=== PATIENT | male | born 1945 | race Caucasian/White ===

== ENCOUNTER 2023-06-11 12:09 | Inpatient (IN) ==
[2023-06-11] MEDS ORDERED: SODIUM CHLORIDE 0.9% 500 ML IV ONE (13:31)
--- NOTE | 2023-06-11 13:36 | Emergency Department Note ---
Impression & Plan Weakness, Falling, COVID-19 ED Provider Note NAME: CHRIS HAYDEN AGE: 78 SEX: M : 1945 ARRIVES VIA: Walk-In INFORMANT: [Patient][] ED PROVIDER(S): [Rudy Diaz MD] CHIEF COMPLAINT: Weakness HISTORY OF PRESENT ILLNESS: The patient is an 78-year-old male who has had 4 to 5 days of cough and congestion. He has had some urgency and frequency of urination. Maybe a low- grade fever but nothing persistent. No chest pain. No shortness of breath. No nausea or vomiting. In the last 36 hours, the patient has become fairly weak to the point where he has had falling. He has fallen about 6 times although, he did not suffer any real injury. No head strikes. He is not on blood thinning agents. Because of the weakness, he presents for evaluation. The patient did do a home COVID test, this was negative. He has had no home sick contacts. PMHx/PSHx/Social Hx: See Below PHYSICAL EXAM: GENERAL: Patient is in no acute distress. HEENT: No acute trauma, normocephalic atraumatic, mucous membranes moist, no nasal congestion. NECK: No stridor, no adenopathy, no meningismus, trachea is midline. LUNGS: Clear to auscultation bilaterally, no wheeze, no rhonchi, breath sounds equal. HEART: Without murmurs gallops or rubs, regular rate and rhythm. ABDOMEN: Soft, nontender, no peritonitis. EXTREMITIES: No cyanosis, full range of motion of all the joints without pain or difficulty. NEUROLOGIC: Oriented x 3, no acute motor or sensory deficits, no focal weakness. No speech slur or facial droop. SKIN: No jaundice, no diaphoresis. DIFFERENTIAL DIAGNOSIS: Dehydration, anemia, electrolyte imbalance, UTI, viral illness, pneumonia, among others. EMERGENCY DEPARTMENT PROCEDURES: MEDICAL DECISION MAKING: There is no leukocytosis. A very mild anemia was seen. There was a normal platelet count. No coagulopathy. No renal failure or significant electrolyte abnormality. No concerning liver enzyme elevation. The patient appeared to be in a euthyroid state. ECG shows a normal sinus rhythm, no ischemia. Cardiac enzyme testing x 1 is not consistent with acute cardiac injury. Urinalysis does not show infection, some contamination was seen. Respiratory bio fire was positive for COVID-19. Chest film did not show mediastinal widening, pneumonia or pneumothorax. On exam, the patient did not have any focal neurologic deficits. The patient presents with weakness. He has fallen multiple times in just the last day and a half. He was not felt safe at home. I suspect his weakness is from his COVID-19 infection. Given the circumstances, hospitalization was felt warranted. I spoke with the patient and case management, the on-call hospitalist was consulted. During the ER stay, the patient received IV saline, 500 cc. Prior/Outside records/notes reviewed: ECG per my interpretation: Indication was weakness. The ECG shows a normal sinus rhythm with some sinus arrhythmia. The rate is 61. There is no ST elevation, no PVCs. The QTc is 420. Continuous Cardiac Monitoring per my interpretation: An order was placed for continuous cardiac monitoring. The monitor shows a rate of 58 with sinus bradycardia. Imaging/x-ray results per my interpretation: Chest x-ray does not show mediastinal widening, pneumonia or pneumothorax. Chronic Medical/Social conditions affecting care: Advanced age. Care/Management discussed with: Case management, the on-call hospitalist Level of care consideration(s): After review of the information above and other included data: --I believe the patient requires escalation of care to admission DISPOSITION: Admission Past Med/Surg History Medical History Depression HLD (hyperlipidemia) Aortic aneurysm Idiopathic peripheral neuropathy T2DM (type 2 diabetes mellitus) Parkinson disease CAD (coronary artery disease) Surgical History Hx of CABG Hx of hernia repair Hx of cataract extraction Family History (Updated 06/11/23 @ 15:43 by Sussy Prasad PA-C) Father Parkinson disease Social History Smoking Status: Former smoker Tobacco Type: Cigarettes Hx Alcohol Use: No Hx Substance Use: No Preferred Language: Ukrainian marital status: Current Living Situation: Spouse Feels Safe at Home: Yes Allergies Allergies Allergy/AdvReac Type Severity Reaction Status Date / Time Iodinated Contrast Media Allergy Severe Anaphylaxis Verified 06/11/23 15:54 iodine Allergy Severe Anaphylaxis Verified 06/11/23 15:54 shellfish derived Allergy Severe Anaphylaxis Verified 06/11/23 15:54 Home Meds Home Medications Medication Instructions Recorded Confirmed aspirin 325 mg tablet,delayed 325 mg PO DAILY 06/11/23 06/11/23 release azelastine 137 mcg (0.1 %) nasal 2 spray intranasal BID 06/11/23 06/11/23 spray aerosol carbidopa 25 mg-levodopa 100 mg 1 tab PO BID 06/11/23 06/11/23 tablet carvedilol 3.125 mg tablet 3.125 mg PO BID 06/11/23 06/11/23 cholecalciferol (vitamin D3) 125 5,000 unit PO DAILY 06/11/23 06/11/23 mcg (5,000 unit) tablet (Vitamin D3) cyanocobalamin (vitamin B-12) 1,000 mcg PO DAILY 06/11/23 06/11/23 1,000 mcg tablet (Vitamin B-12) famotidine 40 mg tablet 40 mg PO DAILYBB 06/11/23 06/11/23 levocetirizine 5 mg tablet 5 mg PO DAILY 06/11/23 06/11/23 lisinopril 2.5 mg tablet 2.5 mg PO DAILY 06/11/23 06/11/23 meloxicam 15 mg tablet 15 mg PO DAILY 06/11/23 06/11/23 metformin 500 mg tablet,extended 1,000 mg PO BID 06/11/23 06/11/23 release 24 hr montelukast 10 mg tablet 10 mg PO DAILY 06/11/23 06/11/23 (Singulair) multivitamin 1 tab PO DAILY 06/11/23 06/11/23 nitroglycerin 0.4 mg sublingual 0.4 mg sublingual DIRECTED PRN 06/11/23 06/11/23 tablet (Nitrostat) Chest Pain rosuvastatin 20 mg tablet 20 mg PO HS 06/11/23 06/11/23 tramadol 50 mg tablet 50 mg PO Q6H PRN Pain 06/11/23 06/11/23 trazodone 50 mg tablet 50 mg PO HS 06/11/23 06/11/23 Results & Data (ED) Vital Signs Vital Signs - 24 hr 06/11/23 12:14 06/11/23 12:38 06/11/23 12:39 Temperature 36.3 C L Temperature Source Skin Pulse Rate 69 Pulse Rate [Apical] 64 Pulse Rhythm Regular Pulse Strength Normal Respiratory Rate 20 17 Respiratory Effort / Characteristics Non-Labored Spontaneous Non-Labored Spontaneous Respiratory Depth Normal Normal Respiratory Pattern Regular Blood Pressure 127/74 Blood Pressure [Right Arm] 143/70 H Blood Pressure Mean 91 Blood Pressure Mean [Right Arm] 94 Blood Pressure Position [Right Arm] Semi-fowlers Pulse Oximetry 96 94 94 Oxygen Delivery Method Room Air Room Air Room Air Sepsis Recent Fever Within 48 Hours No Sepsis New/Unexplained Change in Mental Status N/A Sepsis Action Taken by Nursing No Action Required 06/11/23 13:13 06/11/23 13:19 06/11/23 15:00 Temperature Temperature Source Pulse Rate 58 L Pulse Rate [Apical] 59 L Pulse Rhythm Pulse Strength Respiratory Rate 18 Respiratory Effort / Characteristics Non-Labored Respiratory Depth Normal Respiratory Pattern Blood Pressure Blood Pressure [Right Arm] 154/74 H Blood Pressure Mean Blood Pressure Mean [Right Arm] 100 Blood Pressure Position [Right Arm] Pulse Oximetry 94 95 Oxygen Delivery Method Room Air Room Air Sepsis Recent Fever Within 48 Hours Sepsis New/Unexplained Change in Mental Status Sepsis Action Taken by Nursing 06/11/23 15:20 06/11/23 15:30 06/11/23 15:30 Temperature 36.8 C Temperature Source Oral Pulse Rate 57 L Pulse Rate [Apical] Pulse Rhythm Pulse Strength Respiratory Rate 21 Respiratory Effort / Characteristics Short of Breath Respiratory Depth Respiratory Pattern Blood Pressure 164/76 H Blood Pressure [Right Arm] Blood Pressure Mean 97 Blood Pressure Mean [Right Arm] Blood Pressure Position [Right Arm] Pulse Oximetry 95 Oxygen Delivery Method Room Air Sepsis Recent Fever Within 48 Hours Sepsis New/Unexplained Change in Mental Status Sepsis Action Taken by Nursing 06/11/23 16:00 06/11/23 16:00 06/11/23 16:30 Temperature Temperature Source Pulse Rate 59 L 63 Pulse Rate [Apical] Pulse Rhythm Pulse Strength Respiratory Rate 22 17 Respiratory Effort / Characteristics Respiratory Depth Respiratory Pattern Blood Pressure 163/80 H Blood Pressure [Right Arm] Blood Pressure Mean 125 Blood Pressure Mean [Right Arm] Blood Pressure Position [Right Arm] Pulse Oximetry 96 Oxygen Delivery Method Room Air Sepsis Recent Fever Within 48 Hours Sepsis New/Unexplained Change in Mental Status Sepsis Action Taken by Nursing 06/11/23 16:32 06/11/23 16:32 06/11/23 17:00 Temperature Temperature Source Pulse Rate Pulse Rate [Apical] Pulse Rhythm Pulse Strength Respiratory Rate 22 Respiratory Effort / Characteristics Respiratory Depth Respiratory Pattern Blood Pressure 141/77 H Blood Pressure [Right Arm] Blood Pressure Mean 102 Blood Pressure Mean [Right Arm] Blood Pressure Position [Right Arm] Pulse Oximetry 92 Oxygen Delivery Method Room Air Sepsis Recent Fever Within 48 Hours Sepsis New/Unexplained Change in Mental Status Sepsis Action Taken by Nursing 06/11/23 17:01 06/11/23 17:01 06/11/23 17:23 Temperature Temperature Source Pulse Rate 60 62 Pulse Rate [Apical] Pulse Rhythm Pulse Strength Respiratory Rate 19 Respiratory Effort / Characteristics Respiratory Depth Respiratory Pattern Blood Pressure 161/63 H Blood Pressure [Right Arm] Blood Pressure Mean 85 Blood Pressure Mean [Right Arm] Blood Pressure Position [Right Arm] Pulse Oximetry Oxygen Delivery Method Sepsis Recent Fever Within 48 Hours Sepsis New/Unexplained Change in Mental Status Sepsis Action Taken by Nursing 06/11/23 17:28 06/11/23 17:30 06/11/23 17:31 Temperature Temperature Source Pulse Rate 60 Pulse Rate [Apical] Pulse Rhythm Pulse Strength Respiratory Rate 21 13 Respiratory Effort / Characteristics Respiratory Depth Respiratory Pattern Blood Pressure 152/96 H Blood Pressure [Right Arm] Blood Pressure Mean 131 Blood Pressure Mean [Right Arm] Blood Pressure Position [Right Arm] Pulse Oximetry Oxygen Delivery Method Sepsis Recent Fever Within 48 Hours Sepsis New/Unexplained Change in Mental Status Sepsis Action Taken by Nursing 06/11/23 18:00 06/11/23 18:00 06/11/23 18:30 Temperature Temperature Source Pulse Rate Pulse Rate [Apical] Pulse Rhythm Pulse Strength Respiratory Rate 21 Respiratory Effort / Characteristics Respiratory Depth Respiratory Pattern Blood Pressure 189/94 H 154/82 H Blood Pressure [Right Arm] Blood Pressure Mean 142 116 Blood Pressure Mean [Right Arm] Blood Pressure Position [Right Arm] Pulse Oximetry 95 Oxygen Delivery Method Sepsis Recent Fever Within 48 Hours Sepsis New/Unexplained Change in Mental Status Sepsis Action Taken by Nursing 06/11/23 18:30 Temperature Temperature Source Pulse Rate 61 Pulse Rate [Apical] Pulse Rhythm Pulse Strength Respiratory Rate 18 Respiratory Effort / Characteristics Respiratory Depth Respiratory Pattern Blood Pressure Blood Pressure [Right Arm] Blood Pressure Mean Blood Pressure Mean [Right Arm] Blood Pressure Position [Right Arm] Pulse Oximetry 94 Oxygen Delivery Method Room Air Sepsis Recent Fever Within 48 Hours Sepsis New/Unexplained Change in Mental Status Sepsis Action Taken by Usp Medications Current Medication List: was personally reviewed by sc Laboratory Data Attestation: I reviewed the patient's lab results. 06/11/23 13:34 06/11/23 13:34 Lab Results 06/11/23 06/11/23 Range/Units 13:34 15:20 WBC 6.98 (4.8-10.8) K/ul RBC 4.65 L (4.70-6.10) M/uL Hgb 13.8 L (14.0-18.0) g/dl Hct 41.8 L (42.0-52.0) % MCV 89.9 (80.0-100.0) fL MCH 29.7 (25.0-34.0) pg MCHC 33.0 (32.0-36.0) g/dL RDW Std Deviation 43.9 (36.4-46.3) fL RDW Coeff of Nafisa 13.4 (11.5-14.5) % Plt Count 138 (130-400) K/uL MPV 9.8 (9.4-12.4) fL Immature Gran % (Auto) 0.3 % Neut % (Auto) 61.2 % Lymph % (Auto) 20.1 % [place] % (Auto) 14.3 % Eos % (Auto) 3.7 % Baso % (Auto) 0.4 % Neut # (Auto) 4.27 (1.40-6.50) K/uL Lymph # (Auto) 1.40 (1.20-3.40) K/uL [place] # (Auto) 1.00 H (0.11-0.59) K/uL Eos # (Auto) 0.26 (0.00-0.50) K/uL Baso # (Auto) 0.03 (0.00-0.20) K/uL Immature Gran # (Auto) 0.02 (0.01-0.20) K/uL PT 11.3 (9.0-12.0) Seconds INR 1.0 (0.9-1.1) APTT 33 H (21-31) Seconds PTT Ratio 1.2 Sodium 137 (136-145) mmol/L Potassium 4.4 (3.5-5.1) mmol/L Chloride 103 (98-107) mmol/L Carbon Dioxide 24 (21-32) mmol/L Anion Gap 10 (3-11) BUN 22 (6-23) mg/dl Creatinine 1.40 (0.6-1.4) mg/dl Est Cr Clr Drug Dosing 48.1 ml/min Est GFR ( Amer) 54.6 ml/min Est GFR (Non-Af Amer) 47.1 ml/min BUN/Creatinine Ratio 15.7 (10-20) Glucose 92 (70-99(Fasting)) mg/dl Calcium 9.6 (8.6-10.3) mg/dl Magnesium 1.8 (1.7-2.4) mg/dl Total Bilirubin 0.5 (0.2-1.0) mg/dl AST 19 (13-39) U/L ALT 3 L (7-52) U/L Alkaline Phosphatase 67 (34-104) U/L Total Creatine Kinase 96 (30-223) U/L Troponin I High Sens 10.1 (0-20) pg/ml Total Protein 7.2 (6.0-8.3) gm/dl Albumin 4.1 (3.4-5.0) gm/dl Globulin 3.1 (2.5-4.0) gm/dl Albumin/Globulin Ratio 1.3 (0.9-2) TSH 2.890 (0.300-4.500) uIu/ml Urine Color Yellow Urine Appearance Clear (Clear) Urine pH 5.5 (4.5-7.5) Ur Specific [place] 1.016 (1.000-1.030) Urine Protein 1+ H (Negative) Urine Glucose (UA) Negative (Negative) Urine Ketones Negative (Negative) Urine Blood Negative (Negative) Urine Nitrite Negative (Negative) Urine Bilirubin Negative (Negative) Urine Urobilinogen Negative (Negative) Ur Leukocyte Esterase Negative (Negative) Urine WBC (Auto) 10-30 H (0-5) /hpf Urine RBC (Auto) 0-4 (0-4) /hpf U Hyaline Cast (Auto) 1-5 (0-5) /lpf U Epithel Cells (Auto) 20-30 H (0-5) /lpf Urine Bacteria (Auto) Negative (Negative) Adenovirus (PCR) Not Detected (NotDetected) B. pertussis DNA (PCR) Not Detected (NotDetected) B.parapertussis DNA PCR Not Detected (NotDetected) C. pneumoniae DNA (PCR) Not Detected (NotDetected) Coronavirus OC43 (PCR) Not Detected (NotDetected) Coronavirus HKU1 (PCR) Not Detected (NotDetected) Coronavirus 229E (PCR) Not Detected (NotDetected) SARS-CoV-2 (PCR) DETECTED A* (NotDetected) Coronavirus NL63 (PCR) Not Detected (NotDetected) Human Metapneumovir PCR Not Detected (NotDetected) Influenza Type A (PCR) Not Detected (NotDetected) Influenza Type B (PCR) Not Detected (NotDetected) M. pneumoniae (PCR) Not Detected (NotDetected) Parainfluenza 1 (PCR) Not Detected (NotDetected) Parainfluenza 2 (PCR) Not Detected (NotDetected) Parainfluenza 3 (PCR) Not Detected (NotDetected) Parainfluenza 4 (PCR) Not Detected (NotDetected) RSV (PCR) Not Detected (NotDetected) Entero/Rhino (PCR) Not Detected (NotDetected) Administered Medications Discontinued Medications Carbidopa/Levodopa (Carbidopa/Levodopa 25/100mg Tab) 1 tab PO NOW STA Stop: 06/11/23 16:24 Last Admin: 06/11/23 16:52 Dose: 1 tab Documented By: YUMIKO Sodium Chloride (Nss) 500 mls @ 999 mls/hr IV .Q31M ONE Stop: 06/11/23 14:01 Last Infusion: 06/11/23 14:38 Dose: Infused Documented By: Admin: 06/11/23 14:01 Dose: 999 mls/hr Documented By: BK Imaging Data Radiologist's Impression: Chest X-Ray 06/11/23 13:13 XR chest 1V portable CLINICAL HISTORY: weakness COMPARISON STUDY: No previous studies for comparison. FINDINGS: Lung volumes are mildly diminished. There is no pneumothorax or pleural effusion. Mild left basilar opacity favors atelectasis. There is no consolidation to suggest pneumonia. There are median sternotomy wires. There is cardiomegaly without evidence for pulmonary edema. IMPRESSION: No acute cardiopulmonary findings. Cardiomegaly. ACT 112: Negative or not required by law. Electronically signed by: Reuben Foley M.D. 06/11/2023 2:48 PM Shoulder X-Ray 06/11/23 13:13 XR shoulder RT min 2V routine CLINICAL HISTORY: fall TECHNIQUE: 3 views of the right shoulder were obtained. Comparison: None available at the time of this dictation. FINDINGS: There is no evidence of an acute fracture. Degenerative changes are seen in the glenohumeral joint. The overlying soft tissues are unremarkable. The visualized portions of the lungs are clear. IMPRESSION: Degenerative changes without evidence of acute abnormality. ACT 112: Negative or not required by law. Electronically signed by: Vito Robles M.D. 06/11/2023 2:14 PM Discharge Plan Visit Data Chief Complaint: Weakness Stated Complaint: UNABLE TO AMBULATE,CONGESTION ED Provider: Rudy Diaz Discharge Problem: Weakness, Falling, COVID-19 Patient Disposition: Admitted As Inpatient Condition: Fair Forms Stand Alone Forms: My [facility] Prescriptions Prescriptions: No Action trazodone 50 mg tablet 50 mg PO HS meloxicam 15 mg tablet 15 mg PO DAILY cyanocobalamin (vitamin B-12) [Vitamin B-12] 1,000 mcg Tablet 1,000 mcg PO DAILY tramadol 50 mg tablet 50 mg PO Q6H PRN (Reason: Pain) aspirin 325 mg Tablet,Delayed Release (Dr/Ec) 325 mg PO DAILY azelastine 137 mcg (0.1 %) aerosol,spray 2 spray INTRANASAL BID carbidopa-levodopa 25-100 mg tablet 1 tab PO BID Rx Instructions: 0700 and 1500 metformin 500 mg tablet extended release 24 hr 1,000 mg PO BID lisinopril 2.5 mg tablet 2.5 mg PO DAILY rosuvastatin 20 mg tablet 20 mg PO HS levocetirizine 5 mg tablet 5 mg PO DAILY multivitamin Tablet 1 tab PO DAILY famotidine 40 mg Tablet 40 mg PO DAILYBB carvedilol 3.125 mg tablet 3.125 mg PO BID nitroglycerin [Nitrostat] 0.4 mg Tablet, Sublingual 0.4 mg sublingual DIRECTED PRN (Reason: Chest Pain) montelukast [Singulair] 10 mg Tablet 10 mg PO DAILY cholecalciferol (vitamin D3) [Vitamin D3] 125 mcg (5,000 unit) Tablet 5,000 unit PO DAILY Referrals Referrals: Sandra Griggs MD [Primary Care Provider] -
[2023-06-11 13:56] LABS: Basophils # (auto) 0.03 K/uL (0.00-0.20); Basophils % (auto) 0.4 %; Eosinophils # (auto) 0.26 K/uL (0.00-0.50); Eosinophils % (auto) 3.7 %; Hematocrit (blood only) 41.8 % (42.0-52.0); Hemoglobin 13.8 g/dl (14.0-18.0); Immature Granulocytes # (auto) 0.02 K/uL (0.01-0.20); Immature Granulocytes % (auto) 0.3 %; Lymphocytes % (auto) 20.1 %; Mean Corpuscular Hemoglobin 29.7 pg (25.0-34.0); Mean Corpuscular Volume 89.9 fL (80.0-100.0); Mean Platelet Volume 9.8 fL (9.4-12.4); Monocytes % (auto) 14.3 %; Neutrophils # (auto) 4.27 K/uL (1.40-6.50); Neutrophils % (auto) 61.2 %; Platelet Count 138 K/uL (130-400); RDW Coefficient of Variation 13.4 % (11.5-14.5); RDW Standard Deviation 43.9 fL (36.4-46.3); Red Blood Count 4.65 M/uL (4.70-6.10); White Blood Count 6.98 K/ul (4.8-10.8)
[2023-06-11 14:13] LABS: Albumin Globulin Ratio 1.3 (0.9-2); Albumin Level 4.1 gm/dl (3.4-5.0); BUN Creatinine Ratio 15.7 (10-20); Bilirubin,Total 0.5 mg/dl (0.2-1.0); Calcium 9.6 mg/dl (8.6-10.3); Creatinine Clr Calc Pharmacy 48.1 ml/min; Est GFR (African American) 54.6 ml/min; Est GFR (Non-African American) 47.1 ml/min; Globulin 3.1 gm/dl (2.5-4.0); Magnesium 1.8 mg/dl (1.7-2.4); Potassium 4.4 mmol/L (3.5-5.1); Total Protein 7.2 gm/dl (6.0-8.3)
--- NOTE | 2023-06-11 14:15 | XRay Report ---
XR shoulder RT min 2V routine CLINICAL HISTORY: fall TECHNIQUE: 3 views of the right shoulder were obtained. Comparison: None available at the time of this dictation. FINDINGS: There is no evidence of an acute fracture. Degenerative changes are seen in the glenohumeral joint. T he overlying soft tissues are unremarkable. The visualized portions of the lungs are clear. IMPRESSION: Degenerative changes without evidence of acute abnormality. ACT 112: Negative or not required by law. Electronically signed by: Vito Robles M.D. 06/11/2023 2:14 PM
[2023-06-11 14:20] LABS: Troponin I High Sensitivity 10.1 pg/ml (0-20)
[2023-06-11 14:30] LABS: Partial Thromboplastin Ratio 1.2; Partial Thromboplastin Time 33 Seconds (21-31); Prothrombin Time 11.3 Seconds (9.0-12.0); Thyroid Stimulating Hormone 2.89 uIu/ml (0.300-4.500)
[2023-06-11 14:44] LABS: Adenovirus PCR Not Detected (NotDetected); Bordetella parapertussis PCR Not Detected (NotDetected); Bordetella pertussis PCR Not Detected (NotDetected); Chlamydia pneumoniae PCR Not Detected (NotDetected); Coronavirus 229E PCR Not Detected (NotDetected); Coronavirus HKU1 PCR Not Detected (NotDetected); Coronavirus NL63 PCR Not Detected (NotDetected); Coronavirus OC43PCR Not Detected (NotDetected); Human Metapneumovirus PCR Not Detected (NotDetected); Influenza A PCR Not Detected (NotDetected); Influenza B PCR Not Detected (NotDetected); Mycoplasma pneumoniae PCR Not Detected (NotDetected); Parainfluenza Virus 1 PCR Not Detected (NotDetected); Parainfluenza Virus 2 PCR Not Detected (NotDetected); Parainfluenza Virus 3 PCR Not Detected (NotDetected); Parainfluenza Virus 4 PCR Not Detected (NotDetected); Respiratory Syncytial VirusPCR Not Detected (NotDetected); Rhinovirus/Enterovirus PCR Not Detected (NotDetected)
--- NOTE | 2023-06-11 14:50 | XRay Report ---
XR chest 1V portable CLINICAL HISTORY: weakness COMPARISON STUDY: No previous studies for comparison. FINDINGS: Lung volumes are mildly diminished. There is no pneumothorax or pleural effusion. Mild left basilar opacity favors atelectasis. There is no consolidation to suggest pneumonia. There are median sternotomy wires. There is cardiomegaly without evidence for pulmonary edema. IMPRESSION: No acute cardiopulmonary findings. Cardiomegaly. ACT 112: Negative or not required by law. Electronically signed by: Reuben Foley M.D. 06/11/2023 2:48 PM
[2023-06-11 14:56] LABS: Coronavirus CoV-2 (COVID19)PCR DETECTED (NotDetected)
--- NOTE | 2023-06-11 15:47 | History & Physical Report ---
Date of Service June 11, 2023 Assessment & Plan (1) SARS-CoV-2 positive: (2) Generalized weakness: (3) Frequent falls: (4) Parkinson disease: (5) CAD (coronary artery disease): (6) T2DM (type 2 diabetes mellitus): (7) HLD (hyperlipidemia): Plan This is an 78-year-old male who has significant past medical history of Parkinson's disease, T2DM, CAD, HTN, depression and idiopathic peripheral neuropathy who presents to ED secondary to generalized weakness and falling. SARS-CoV-2 positive Generalized weakness Frequent falls Admit to medical Patient does not meet criteria for COVID therapy Supportive care Gentle IV fluid for additional 1 L PT OT Parkinson's disease Chronic, stable Continue Sinemet CAD History of CABG Follows at [facility] cardiology Continue ASA, carvedilol, lisinopril and statin Denies chest pain or shortness of breath T2DM Chronic, stable hold Metformin Lantus/NovoLog per protocol DVT ppx: SQ Lovenox FULL CODE Dispo: med surg, PT/OT PCP: Sandra Griggs Pt was seen and examined in collaboration with Dr. Fry, please see addendum A total of 77 minutes was spent coordinating, documenting, and providing care for this patient excluding time spent in the performance of separately billed services. This included personally viewing all current laboratories and imaging studies, medication reconciliation, outpatient chart review, and discussion with specialists. History of Present Illness Chief Complaint: Weakness and falling. Primary Care Provider: Sandra Griggs MD This is an 78-year-old male who has significant past medical history of Parkinson's disease, T2DM, CAD, HTN, depression and idiopathic peripheral neuropathy who presents to ED secondary to generalized weakness and falling. is at bedside who also helps elicit history. Patient developed URI Symptoms approximately 5 days ago with sinus congestion, dry cough and fever for 3 days. He continues to have sinus congestion, fatigue, poor appetite and profound weakness. Over the last 2 days he has fallen 6 times. He did not lose consciousness or hit his head. He has no known injuries. He is very difficult to get off the ground so family had to call for help to assist. Due to frequent falls opted to bring patient to ED. Currently denies any fever, chills, sweats, lightheadedness, dizziness, chest pain, shortness of breath, nausea, vomiting, abdominal pain, dysuria, melena or hematochezia. He does complain of urinary urgency but denies any hematuria. Overall appetite has been poor and has not ate or drink much the last few days. In ED he remained hemodynamically stable although mildly hypertensive. Respiratory bio fire positive for SARS-CoV-2. Notable lab abnormalities include H&H 13.8 and 41.8, BUN/creatinine stable at 22 and 1.4. His troponin, CK and TSH are within normal limits. His urinalysis was negative for infection. He did receive IV fluids in the ED. Allergies Allergy/AdvReac Type Severity Reaction Status Date / Time Iodinated Contrast Media Allergy Severe Anaphylaxis Verified 06/11/23 15:54 iodine Allergy Severe Anaphylaxis Verified 06/11/23 15:54 shellfish derived Allergy Severe Anaphylaxis Verified 06/11/23 15:54 Home Medications Medication Instructions Recorded Confirmed Type aspirin 325 mg tablet,delayed 325 mg PO DAILY 06/11/23 06/11/23 History release azelastine 137 mcg (0.1 %) nasal 2 spray intranasal BID 06/11/23 06/11/23 History spray aerosol carbidopa 25 mg-levodopa 100 mg 1 tab PO BID 06/11/23 06/11/23 History tablet carvedilol 3.125 mg tablet 3.125 mg PO BID 06/11/23 06/11/23 History cholecalciferol (vitamin D3) 125 5,000 unit PO DAILY 06/11/23 06/11/23 History mcg (5,000 unit) tablet (Vitamin D3) cyanocobalamin (vitamin B-12) 1,000 mcg PO DAILY 06/11/23 06/11/23 History 1,000 mcg tablet (Vitamin B-12) famotidine 40 mg tablet 40 mg PO DAILYBB 06/11/23 06/11/23 History levocetirizine 5 mg tablet 5 mg PO DAILY 06/11/23 06/11/23 History lisinopril 2.5 mg tablet 2.5 mg PO DAILY 06/11/23 06/11/23 History meloxicam 15 mg tablet 15 mg PO DAILY 06/11/23 06/11/23 History metformin 500 mg tablet,extended 1,000 mg PO BID 06/11/23 06/11/23 History release 24 hr montelukast 10 mg tablet 10 mg PO DAILY 06/11/23 06/11/23 History (Singulair) multivitamin 1 tab PO DAILY 06/11/23 06/11/23 History nitroglycerin 0.4 mg sublingual 0.4 mg sublingual DIRECTED PRN 06/11/23 06/11/23 History tablet (Nitrostat) Chest Pain rosuvastatin 20 mg tablet 20 mg PO HS 06/11/23 06/11/23 History tramadol 50 mg tablet 50 mg PO Q6H PRN Pain 06/11/23 06/11/23 History trazodone 50 mg tablet 50 mg PO HS 06/11/23 06/11/23 History Past Med/Surg History Medical History Depression HLD (hyperlipidemia) Aortic aneurysm Idiopathic peripheral neuropathy T2DM (type 2 diabetes mellitus) Parkinson disease CAD (coronary artery disease) Surgical History Hx of CABG Hx of hernia repair Hx of cataract extraction Family History (Updated 06/11/23 @ 15:43 by Sussy Prasad PA-C) Father Parkinson disease Social History (Updated 06/11/23 @ 15:43 by Sussy Prasad PA-C) Smoking Status: Former smoker Tobacco Type: Cigarettes Hx Alcohol Use: No Hx Substance Use: No Preferred Language: Italian marital status: Current Living Situation: Spouse Feels Safe at Home: Yes Review of Systems Review of Systems: All systems reviewed & are unremarkable except as noted in HPI & below Physical Exam Physical Exam: Constitutional: WD/WN, vitals as above, NAD, sitting up in bed, pleasant, conversing easily Head: Normocephalic, Atraumatic Eyes: PERRL, conjunctivae normal, anicteric sclerae ENMT: external ear and nose normal, oropharynx normal Neck: trachea midline, no thyromegaly normal visual inspection Respiratory: normal respiratory effort, lungs clear to auscultation, no wheeze, rales, rhonchi. Normal insp/exp effort, no accessory muscle use Cardiovascular: bradycardic rate, regular rhythm, no murmur, no edema Vessels: no JVD or carotid bruit Chest: normal inspection of chest Abdomen: normal bowel sounds, soft, nontender, no hepatosplenomegaly Musculoskeletal: no cyanosis or clubbing, AROM x 4 Skin: no rashes, warm and dry normal turgor Neurologic: PERRL, EOMI, accommodation nl, no face palsy, no dysarthria CN's II-XI intact bilaterally and moves all extremities Psychiatric: A+Ox3, euthymic affect Lymphatic: no cervical or axillary lymphadenopathy : deferred Results & Data Results & Data Vital Signs (Past 12 Hours) Vital Signs Temp Pulse Pulse Resp BP BP Pulse Ox 06/11/23 15:20 36.8 C 06/11/23 15:00 59 L 18 154/74 H 95 06/11/23 13:19 58 L 06/11/23 13:13 94 06/11/23 12:39 94 06/11/23 12:38 64 17 143/70 H 94 06/11/23 12:14 36.3 C L 69 20 127/74 96 O2 Del Method 06/11/23 15:20 06/11/23 15:00 Room Air 06/11/23 13:19 06/11/23 13:13 Room Air 06/11/23 12:39 Room Air 06/11/23 12:38 Room Air 06/11/23 12:14 Room Air Laboratory Results I have independently reviewed and interpreted patient's admitting labs including CBC, CMP, PTT, PT/INR, mag, CK, TSH and troponin. Respiratory biofire + Sars covid2 Diagnostic Findings Chest X-Ray 06/11/23 13:13 XR chest 1V portable CLINICAL HISTORY: weakness COMPARISON STUDY: No previous studies for comparison. FINDINGS: Lung volumes are mildly diminished. There is no pneumothorax or pleural effusion. Mild left basilar opacity favors atelectasis. There is no consolidation to suggest pneumonia. There are median sternotomy wires. There is cardiomegaly without evidence for pulmonary edema. IMPRESSION: No acute cardiopulmonary findings. Cardiomegaly. ACT 112: Negative or not required by law. Electronically signed by: Reuben Foley M.D. 06/11/2023 2:48 PM Shoulder X-Ray 06/11/23 13:13 XR shoulder RT min 2V routine CLINICAL HISTORY: fall TECHNIQUE: 3 views of the right shoulder were obtained. Comparison: None available at the time of this dictation. FINDINGS: There is no evidence of an acute fracture. Degenerative changes are seen in the glenohumeral joint. The overlying soft tissues are unremarkable. The visualized portions of the lungs are clear. IMPRESSION: Degenerative changes without evidence of acute abnormality. ACT 112: Negative or not required by law. Electronically signed by: Vito Robles M.D. 06/11/2023 2:14 PM Medications Administered Medication List Discontinued Medications Sodium Chloride (Nss) 500 mls @ 999 mls/hr IV .Q31M ONE Stop: 06/11/23 14:01 Last Infusion: 06/11/23 14:38 Dose: Infused Documented By: Admin: 06/11/23 14:01 Dose: 999 mls/hr Documented By: KATHLEEN ECG Additional Comments: I have independently reviewed and interpreted patient's admitting EKG which revealed: 61 NSR, qtc 420ms, no St o t wave changes COVID-19 Results Results COVID-19 Adm Lab Results: RBC 4.65 M/uL (4.70-6.10) L 06/11/23 WBC 6.98 K/ul (4.8-10.8) 06/11/23 Hgb 13.8 g/dl (14.0-18.0) L 06/11/23 Hct 41.8 % (42.0-52.0) L 06/11/23 Plt Count 138 K/uL (130-400) 06/11/23 Neutrophils (%) (Auto) 61.2 % 06/11/23 Lymphocytes (%) (Auto) 20.1 % 06/11/23 Monocytes # (Auto) 1.00 K/uL (0.11-0.59) H 06/11/23 Eosinophils # (Auto) 0.26 K/uL (0.00-0.50) 06/11/23 Immature Granulocyte % (Auto) 0.3 % 06/11/23 Neutrophils # (Auto) 4.27 K/uL (1.40-6.50) 06/11/23 Lymphocytes # (Auto) 1.40 K/uL (1.20-3.40) 06/11/23 Monocytes # (Auto) 1.00 K/uL (0.11-0.59) H 06/11/23 Eosinophils # (Auto) 0.26 K/uL (0.00-0.50) 06/11/23 Basophils # (Auto) 0.03 K/uL (0.00-0.20) 06/11/23 Immature Granulocyte # (Auto) 0.02 K/uL (0.01-0.20) 3 Na 137 mmol/L (136-145) 06/11/23 K 4.4 mmol/L (3.5-5.1) 06/11/23 Cl 103 mmol/L (98-107) 06/11/23 CO2 24 mmol/L (21-32) 06/11/23 Anion Gap 10 (3-11) 06/11/23 BUN 22 mg/dl (6-23) 06/11/23 Creatinine 1.40 mg/dl (0.6-1.4) 06/11/23 BUN/Creatinine Ratio 15.7 (10-20) 06/11/23 Glucose Level 92 mg/dl (70-99(Fasting)) 06/11/23 Ca 9.6 mg/dl (8.6-10.3) 06/11/23 Total Bilirubin 0.5 mg/dl (0.2-1.0) 06/11/23 AST/SGOT 19 U/L (13-39) 06/11/23 ALT/SGPT 3 U/L (7-52) L 06/11/23 Alkaline Phosphatase 67 U/L (34-104) 06/11/23 Total Protein 7.2 gm/dl (6.0-8.3) 06/11/23 Albumin 4.1 gm/dl (3.4-5.0) 06/11/23 Globulin 3.1 gm/dl (2.5-4.0) 06/11/23 Albumin/Globulin Ratio 1.3 (0.9-2) 06/11/23 Total CK 96 U/L (30-223) 06/11/23 PTT 33 Seconds (21-31) H 06/11/23 INR 1.0 (0.9-1.1) 06/11/23 Adenovirus (PCR) Not Detected (NotDetected) 06/11/23 B. parapertussis DNA (PCR) Not Detected (NotDetected) 05/23 07/14 B. pertussis DNA (PCR) Not Detected (NotDetected) 06/11/23 C. pneumoniae DNA (PCR) Not Detected (NotDetected) 3 Coronavirus Type OC43 (PCR) Not Detected (NotDetected) Coronavirus Type HKU1 (PCR) Not Detected (NotDetected) Coronavirus Type 229E (PCR) Not Detected (NotDetected) COVID-19 PCR DETECTED (NotDetected) A* 06/11/23 Coronavirus Type NL63 (PCR) Not Detected (NotDetected) Human Metapneumovirus (PCR) Not Detected (NotDetected) Influenza Virus Type A (PCR) Not Detected (NotDetected) Influenza Virus Type B (PCR) Not Detected (NotDetected) M. pneumoniae (PCR) Not Detected (NotDetected) 06/11/23 Parainfluenza Type 1 (PCR) Not Detected (NotDetected) 05/23 07/14 Parainfluenza Type 2 (PCR) Not Detected (NotDetected) 05/23 07/14 Parainfluenza Type 3 (PCR) Not Detected (NotDetected) 05/23 07/14 Parainfluenza Type 4 (PCR) Not Detected (NotDetected) 05/23 07/14 RSV (PCR) Not Detected (NotDetected) 06/11/23 Enterovirus/Rhinovirus (PCR) Not Detected (NotDetected) Chest X-Ray 06/11/23 Code Status & VTE Plan Code Status FULL CODE Supervising Physician Co-Signing Physician Notes I have seen and discussed the case with the collaborating ROHIT. I agree with the above H&P. I have reviewed and confirmed the patients medical history, the findings on physical examination, and the patients diagnosis and treatment plan with Shanice BEE and agree with the information documented. In short, Mr. Leon is an 78 year old gentleman with recently diagnosed Parkison's disease as well as peripheral neuropathy who is admitted for worsening weakness and found to be COVID positive. Patient has experienced progressive decline with multiple falls for which he follows [facility]. Recently he was started on Sinemet. He struggles with forward falling and balance issues; however, over the last week patient has experienced increasing cough and malaise--rendering him unable to stand from a fall. Labs notable for COVID positive. Plan #Ambulatory dysfunction #Parkinsons Disease #Peripheral neuropathy -Follows [facility], continue sinemet -OP b12 levels 1151 04/2023 -Weakness likely exacerbated by COVID infection -PT/OT eval: discussed the likely need for rehab given recent sickness as well as concurrent dysfunction with peripheral neuropathy/ PD, patient agreed to think over and participate as able with eval when it occurs #COVID infection -Low suspicion for superimposed bacterial infection -No hypoxia, afebrile (reports of TMAX 100F at home) -Plan for symptomatic control Rest of plan as above
[2023-06-11 15:57] LABS: Appearance Urine Clear (Clear); Bacteria Urine Automated Negative (Negative); Bilirubin Urine Negative (Negative); Blood Urine Negative (Negative); Color Urine Yellow; Epithelial Cell Urine Auto 20-30 /lpf (0-5); Glucose Urine UA Negative (Negative); Ketones Urine Negative (Negative); Leukocyte Esterase Urine Negative (Negative); Nitrite Urine Negative (Negative); Protein Urine 1+ (Negative); RBC Urine Automated 0-4 /hpf (0-4); Specific Gravity Urine 1.016 (1.000-1.030); Urobilinogen Urine Negative (Negative); pH Urine 5.5 (4.5-7.5)
[2023-06-11] MEDS ORDERED: CARBIDOPA/LEVODOPA 25/100MG TAB PO STA (16:23)
[2023-06-11] MEDS ORDERED: CARBOHYDRATES FOR HYPOGLYCEMIA PO PRN (19:53)
[2023-06-11] MEDS ORDERED: ONDANSETRON INJ 2 MG/ML 2 ML VIAL IV PRN (19:53)
[2023-06-11] MEDS ORDERED: GLUCOSE 10 TAB/TUBE PO PRN (19:53)
[2023-06-11] MEDS ORDERED: MAGNESIUM HYDROXIDE SUSP 30 ML UDC PO PRN (19:53)
[2023-06-11] MEDS ORDERED: POLYETHYLENE (MIRALAX) 17 GM PACK PO PRN (19:53)
[2023-06-11] MEDS ORDERED: LACTATED RINGER'S 1,000 ML IV SCH (19:53)
[2023-06-11] MEDS ORDERED: ALUMINUM/MAGNESIUM SUSP 30 ML UDC PO PRN (19:53)
[2023-06-11] MEDS ORDERED: DEXTROSE 50% 50 ML SYRINGE IV PRN (19:53)
[2023-06-11] MEDS ORDERED: GLUCAGON FOR INJ 1 MG VIAL SQ PRN (19:53)
[2023-06-11] MEDS ORDERED: GLUCOSE 40% GEL 15 GM TUBE PO PRN (19:53)
[2023-06-11] MEDS ORDERED: ACETAMINOPHEN 325 MG TAB PO PRN (19:53)
[2023-06-11] MEDS: AZELASTINE HCL 0.1% NASAL 200 SPRAYS/27,400 MCG BTL SCH (22:45)
[2023-06-11] MEDS: ENOXAPARIN INJ 40 MG/0.4 ML SYR SQ SCH (22:46)
[2023-06-11] MEDS: traZODone HCL 50 MG TAB PO SCH (22:47)
[2023-06-11] MEDS: ROSUVASTATIN CALCIUM 20 MG TAB PO SCH (22:47)
[2023-06-11] MEDS: carvediloL 3.125 MG TAB PO SCH (22:47)
[2023-06-11] MEDS: INSULIN ASPART PER UNIT CHARGE SC SCH (23:18)
[2023-06-11] MEDS: LANTUS PER UNIT CHARGE SQ SCH (23:19)
[2023-06-12] MEDS: FAMOTIDINE 40 MG TABLET PO SCH (06:01)
[2023-06-12] MEDS: CARBIDOPA/LEVODOPA 25/100MG TAB PO SCH ×2 (06:01→15:16)
[2023-06-12 08:04] LABS: Basophils # (auto) 0.02 K/uL (0.00-0.20); Basophils % (auto) 0.4 %; Eosinophils # (auto) 0.47 K/uL (0.00-0.50); Eosinophils % (auto) 9.2 %; Hematocrit (blood only) 40.1 % (42.0-52.0); Hemoglobin 13.1 g/dl (14.0-18.0); Immature Granulocytes # (auto) 0.02 K/uL (0.01-0.20); Immature Granulocytes % (auto) 0.4 %; Lymphocytes # (auto) 1.32 K/uL (1.20-3.40); Lymphocytes % (auto) 25.8 %; Mean Corpuscular Hemoglobin 29.4 pg (25.0-34.0); Mean Corpuscular Hgb Conc 32.7 g/dL (32.0-36.0); Mean Corpuscular Volume 90.1 fL (80.0-100.0); Mean Platelet Volume 9.9 fL (9.4-12.4); Monocytes # (auto) 0.54 K/uL (0.11-0.59); Monocytes % (auto) 10.5 %; Neutrophils # (auto) 2.75 K/uL (1.40-6.50); Neutrophils % (auto) 53.7 %; Platelet Count 135 K/uL (130-400); RDW Coefficient of Variation 13.3 % (11.5-14.5); RDW Standard Deviation 44.5 fL (36.4-46.3); Red Blood Count 4.45 M/uL (4.70-6.10); White Blood Count 5.12 K/ul (4.8-10.8)
[2023-06-12 08:17] LABS: BUN Creatinine Ratio 17.3 (10-20); Creatinine Clr Calc Pharmacy 52.3 ml/min; Est GFR (African American) 58.1 ml/min; Est GFR (Non-African American) 50.1 ml/min; Potassium 3.9 mmol/L (3.5-5.1)
[2023-06-12 08:23] LABS: Estimated Average Glucose 123 mg/dl; Hemoglobin A1C 5.9 % (4.5-5.6)
[2023-06-12] MEDS ORDERED: SODIUM CHLORIDE 0.65% NA SOLN 45 ML (OCEAN) PRN (08:58)
--- NOTE | 2023-06-12 09:01 | Hospitalist Progress Note ---
Date of Service June 12, 2023 Assessment & Plan (1) SARS-CoV-2 positive: (2) Generalized weakness: (3) Frequent falls: (4) Parkinson disease: (5) CAD (coronary artery disease): (6) T2DM (type 2 diabetes mellitus): (7) HLD (hyperlipidemia): Plan This is an 78-year-old male who has significant past medical history of Parkinson's disease, T2DM, CAD, HTN, depression and idiopathic peripheral neuropathy who presents to ED secondary to generalized weakness and falling. SARS-CoV-2 positive Generalized weakness Frequent falls Patient does not meet criteria for COVID therapy Supportive care Gentle IV fluid given PT OT Parkinson's disease Chronic, stable Continue Sinemet CAD History of CABG Follows at [facility] cardiology Continue ASA, carvedilol, lisinopril and statin Denies chest pain or shortness of breath T2DM Chronic, stable hold Metformin Lantus/NovoLog per protocol Hypomagnesemia Mag 1.5, replete and monitor DVT ppx: SQ Lovenox FULL CODE Dispo: med surg, PT/OT PCP: Sandra Griggs Admission and Anticipated Discharge Date Admission Date: June 11, 2023 Subjective Pt seen in follow up of weakness, falls, + covid 19. hx of parkinson's and periph. neuropathy Currently sitting up in chair, in NAD. Pt's is present at the bedside. pot reports feeling much better than yesterday, says he walked in the room w/PT No fever, chills, chest pain, shortness of breath, no cough Pt's concerned about his weakness and poss. return home as she doesn't feel she can physically help him much Review of Systems Review of Systems: All systems reviewed & are unremarkable except as noted in Subjective Physical Exam Physical Exam: Constitutional: WD/WN, M in NAD Head: Normocephalic, Atraumatic Eyes: PERRL, conjunctivae normal, anicteric sclerae ENMT: external ear and nose normal, oropharynx normal Neck: supple Respiratory: normal respiratory effort, lungs clear to auscultation, no wheeze, rales, rhonchi. Normal insp/exp effort, no accessory muscle use Cardiovascular: rrr, no murmur, no edema Vessels: no JVD or carotid bruit Chest: normal inspection of chest Abdomen: normal bowel sounds, soft, nontender Musculoskeletal: moves extremities Skin: no rashes, warm and dry normal turgor Neurologic: PERRL, EOMI, no face palsy, no dysarthria, moves all extremities Psychiatric: A+Ox3, euthymic affect Results & Data Results & Data Vital Signs (Past 12 Hours) Vital Signs Temp Pulse Resp BP Pulse Ox O2 Del Method 06/12/23 07:07 Room Air 06/12/23 07:03 36.8 C 56 L 18 155/67 H 94 Room Air 06/11/23 22:44 57 L 137/71 95 Room Air Laboratory Results 06/12/23 06/12/23 06/11/23 Range/Units 08:00 07:39 21:50 WBC 5.12 (4.8-10.8) K/ul RBC 4.45 L (4.70-6.10) M/uL Hgb 13.1 L (14.0-18.0) g/dl Hct 40.1 L (42.0-52.0) % MCV 90.1 (80.0-100.0) fL MCH 29.4 (25.0-34.0) pg MCHC 32.7 (32.0-36.0) g/dL RDW Std Deviation 44.5 (36.4-46.3) fL RDW Coeff of Nafisa 13.3 (11.5-14.5) % Plt Count 135 (130-400) K/uL MPV 9.9 (9.4-12.4) fL Immature Gran % (Auto) 0.4 % Neut % (Auto) 53.7 % Lymph % (Auto) 25.8 % [place] % (Auto) 10.5 % Eos % (Auto) 9.2 % Baso % (Auto) 0.4 % Neut # (Auto) 2.75 (1.40-6.50) K/uL Lymph # (Auto) 1.32 (1.20-3.40) K/uL [place] # (Auto) 0.54 (0.11-0.59) K/uL Eos # (Auto) 0.47 (0.00-0.50) K/uL Baso # (Auto) 0.02 (0.00-0.20) K/uL Immature Gran # (Auto) 0.02 (0.01-0.20) K/uL PT (9.0-12.0) Seconds INR (0.9-1.1) APTT (21-31) Seconds PTT Ratio Sodium 139 (136-145) mmol/L Potassium 3.9 (3.5-5.1) mmol/L Chloride 106 (98-107) mmol/L Carbon Dioxide 26 (21-32) mmol/L Anion Gap 7 (3-11) BUN 23 (6-23) mg/dl Creatinine 1.33 (0.6-1.4) mg/dl Est Cr Clr Drug Dosing 52.3 ml/min Est GFR ( Amer) 58.1 ml/min Est GFR (Non-Af Amer) 50.1 ml/min BUN/Creatinine Ratio 17.3 (10-20) Glucose 95 (70-99(Fasting)) mg/dl POC Glucose 97 104 H (70-99) mg/dl Estimat Average Glucose 123 mg/dl Hemoglobin A1c 5.9 H (4.5-5.6) % Calcium 9.0 (8.6-10.3) mg/dl Magnesium (1.7-2.4) mg/dl Total Bilirubin (0.2-1.0) mg/dl AST (13-39) U/L ALT (7-52) U/L Alkaline Phosphatase (34-104) U/L Total Creatine Kinase (30-223) U/L Troponin I High Sens (0-20) pg/ml Total Protein (6.0-8.3) gm/dl Albumin (3.4-5.0) gm/dl Globulin (2.5-4.0) gm/dl Albumin/Globulin Ratio (0.9-2) TSH (0.300-4.500) uIu/ml Urine Color Urine Appearance (Clear) Urine pH (4.5-7.5) Ur Specific [place] (1.000-1.030) Urine Protein (Negative) Urine Glucose (UA) (Negative) Urine Ketones (Negative) Urine Blood (Negative) Urine Nitrite (Negative) Urine Bilirubin (Negative) Urine Urobilinogen (Negative) Ur Leukocyte Esterase (Negative) Urine WBC (Auto) (0-5) /hpf Urine RBC (Auto) (0-4) /hpf U Hyaline Cast (Auto) (0-5) /lpf U Epithel Cells (Auto) (0-5) /lpf Urine Bacteria (Auto) (Negative) Adenovirus (PCR) (NotDetected) B. pertussis DNA (PCR) (NotDetected) B.parapertussis DNA PCR (NotDetected) C. pneumoniae DNA (PCR) (NotDetected) Coronavirus OC43 (PCR) (NotDetected) Coronavirus HKU1 (PCR) (NotDetected) Coronavirus 229E (PCR) (NotDetected) SARS-CoV-2 (PCR) (NotDetected) Coronavirus NL63 (PCR) (NotDetected) Human Metapneumovir PCR (NotDetected) Influenza Type A (PCR) (NotDetected) Influenza Type B (PCR) (NotDetected) M. pneumoniae (PCR) (NotDetected) Parainfluenza 1 (PCR) (NotDetected) Parainfluenza 2 (PCR) (NotDetected) Parainfluenza 3 (PCR) (NotDetected) Parainfluenza 4 (PCR) (NotDetected) RSV (PCR) (NotDetected) Entero/Rhino (PCR) (NotDetected) 06/11/23 06/11/23 Range/Units 15:20 13:34 WBC 6.98 (4.8-10.8) K/ul RBC 4.65 L (4.70-6.10) M/uL Hgb 13.8 L (14.0-18.0) g/dl Hct 41.8 L (42.0-52.0) % MCV 89.9 (80.0-100.0) fL MCH 29.7 (25.0-34.0) pg MCHC 33.0 (32.0-36.0) g/dL RDW Std Deviation 43.9 (36.4-46.3) fL RDW Coeff of Nafisa 13.4 (11.5-14.5) % Plt Count 138 (130-400) K/uL MPV 9.8 (9.4-12.4) fL Immature Gran % (Auto) 0.3 % Neut % (Auto) 61.2 % Lymph % (Auto) 20.1 % [place] % (Auto) 14.3 % Eos % (Auto) 3.7 % Baso % (Auto) 0.4 % Neut # (Auto) 4.27 (1.40-6.50) K/uL Lymph # (Auto) 1.40 (1.20-3.40) K/uL [place] # (Auto) 1.00 H (0.11-0.59) K/uL Eos # (Auto) 0.26 (0.00-0.50) K/uL Baso # (Auto) 0.03 (0.00-0.20) K/uL Immature Gran # (Auto) 0.02 (0.01-0.20) K/uL PT 11.3 (9.0-12.0) Seconds INR 1.0 (0.9-1.1) APTT 33 H (21-31) Seconds PTT Ratio 1.2 Sodium 137 (136-145) mmol/L Potassium 4.4 (3.5-5.1) mmol/L Chloride 103 (98-107) mmol/L Carbon Dioxide 24 (21-32) mmol/L Anion Gap 10 (3-11) BUN 22 (6-23) mg/dl Creatinine 1.40 (0.6-1.4) mg/dl Est Cr Clr Drug Dosing 48.1 ml/min Est GFR ( Amer) 54.6 ml/min Est GFR (Non-Af Amer) 47.1 ml/min BUN/Creatinine Ratio 15.7 (10-20) Glucose 92 (70-99(Fasting)) mg/dl POC Glucose (70-99) mg/dl Estimat Average Glucose mg/dl Hemoglobin A1c (4.5-5.6) % Calcium 9.6 (8.6-10.3) mg/dl Magnesium 1.8 (1.7-2.4) mg/dl Total Bilirubin 0.5 (0.2-1.0) mg/dl AST 19 (13-39) U/L ALT 3 L (7-52) U/L Alkaline Phosphatase 67 (34-104) U/L Total Creatine Kinase 96 (30-223) U/L Troponin I High Sens 10.1 (0-20) pg/ml Total Protein 7.2 (6.0-8.3) gm/dl Albumin 4.1 (3.4-5.0) gm/dl Globulin 3.1 (2.5-4.0) gm/dl Albumin/Globulin Ratio 1.3 (0.9-2) TSH 2.890 (0.300-4.500) uIu/ml Urine Color Yellow Urine Appearance Clear (Clear) Urine pH 5.5 (4.5-7.5) Ur Specific [place] 1.016 (1.000-1.030) Urine Protein 1+ H (Negative) Urine Glucose (UA) Negative (Negative) Urine Ketones Negative (Negative) Urine Blood Negative (Negative) Urine Nitrite Negative (Negative) Urine Bilirubin Negative (Negative) Urine Urobilinogen Negative (Negative) Ur Leukocyte Esterase Negative (Negative) Urine WBC (Auto) 10-30 H (0-5) /hpf Urine RBC (Auto) 0-4 (0-4) /hpf U Hyaline Cast (Auto) 1-5 (0-5) /lpf U Epithel Cells (Auto) 20-30 H (0-5) /lpf Urine Bacteria (Auto) Negative (Negative) Adenovirus (PCR) Not Detected (NotDetected) B. pertussis DNA (PCR) Not Detected (NotDetected) B.parapertussis DNA PCR Not Detected (NotDetected) C. pneumoniae DNA (PCR) Not Detected (NotDetected) Coronavirus OC43 (PCR) Not Detected (NotDetected) Coronavirus HKU1 (PCR) Not Detected (NotDetected) Coronavirus 229E (PCR) Not Detected (NotDetected) SARS-CoV-2 (PCR) DETECTED A* (NotDetected) Coronavirus NL63 (PCR) Not Detected (NotDetected) Human Metapneumovir PCR Not Detected (NotDetected) Influenza Type A (PCR) Not Detected (NotDetected) Influenza Type B (PCR) Not Detected (NotDetected) M. pneumoniae (PCR) Not Detected (NotDetected) Parainfluenza 1 (PCR) Not Detected (NotDetected) Parainfluenza 2 (PCR) Not Detected (NotDetected) Parainfluenza 3 (PCR) Not Detected (NotDetected) Parainfluenza 4 (PCR) Not Detected (NotDetected) RSV (PCR) Not Detected (NotDetected) Entero/Rhino (PCR) Not Detected (NotDetected) Medications Administered Current Inpatient Medications Acetaminophen (Acetaminophen 325 Mg Tab) 650 mg PO Q4H PRN PRN Reason: pain/fever Stop: 07/11/23 19:52 Al Hydrox/Mg Hydrox/Simethicone (Aluminum/Magnesium Susp 30 Ml Udc) 30 ml PO Q6H PRN PRN Reason: Dyspepsia Stop: 07/11/23 19:52 Aspirin (Aspirin 325 Mg Ectab) 325 mg PO DAILY [facility] Stop: 07/12/23 08:59 Azelastine HCl (Azelastine Hcl 0.1% Nasal 200 Sprays/27,400 Mcg Btl) 2 sprays NA BID [facility] Stop: 07/11/23 20:59 Last Admin: 06/11/23 22:45 Dose: 2 sprays Carbidopa/Levodopa (Carbidopa/Levodopa 25/100mg Tab) 1 tab PO BID@0700,1500 [facility] Stop: 07/12/23 06:59 Last Admin: 06/12/23 06:01 Dose: 1 tab Carvedilol (Carvedilol 3.125 Mg Tab) 3.125 mg PO BIDM [facility] Stop: 07/11/23 20:59 Last Admin: 06/11/23 22:47 Dose: Not Given Cetirizine HCl (Cetirizine Hcl 10 Mg Tablet) 5 mg PO DAILY [facility]; Protocol Stop: 07/12/23 08:59 Cyanocobalamin (Cyanocobalamin (B-12) 500 Mcg Tablet) 1,000 mcg PO DAILY [facility] Stop: 07/12/23 08:59 Dextrose (Dextrose 50% 50 Ml Syringe) 25 - 50 ml IV UD PRN; Protocol PRN Reason: Hypoglycemia Protocol Stop: 07/11/23 19:52 Enoxaparin Sodium (Enoxaparin Inj 40 Mg/0.4 Ml Syr) 40 mg SQ HS [facility] Stop: 07/11/23 20:59 Last Admin: 06/11/23 22:46 Dose: 40 mg Famotidine (Famotidine 40 Mg Tablet) 40 mg PO DAILYBB [facility] Stop: 07/12/23 06:29 Last Admin: 06/12/23 06:01 Dose: 40 mg Glucagon (Glucagon For Inj 1 Mg Vial) 1 mg SQ UD PRN; Protocol PRN Reason: Hypoglycemia Protocol Stop: 07/11/23 19:52 Glucose (Glucose 10 Tab/Tube) 4 - 8 tab PO UD PRN; Protocol PRN Reason: Hypoglycemia Treatment Stop: 07/11/23 19:52 Glucose (Glucose 40% Gel 15 Gm Tube) 15 - 30 gm PO UD PRN; Protocol PRN Reason: Hypoglycemia Protocol Stop: 07/11/23 19:52 Guaifenesin (Guaifenesin 600 Mg Tabcr) 600 mg PO Q12 [facility] Stop: 07/12/23 08:59 Insulin Aspart (Insulin Aspart Per Unit Charge) 0 units SC ACHS [facility] Stop: 07/11/23 20:59 Last Admin: 06/11/23 23:18 Dose: Not Given Insulin Glargine (Lantus Per Unit Charge) 0 - 8 units SQ BID [facility] Stop: 07/11/23 20:59 Last Admin: 06/11/23 23:19 Dose: Not Given Lisinopril (Lisinopril 2.5 Mg Tab) 2.5 mg PO DAILY [facility] Stop: 07/12/23 08:59 Magnesium Hydroxide (Magnesium Hydroxide Susp 30 Ml Udc) 30 ml PO Q6H PRN PRN Reason: Constipation Stop: 07/11/23 19:52 Meloxicam (Meloxicam 7.5 Mg Tab) 15 mg PO DAILY [facility] Stop: 07/12/23 08:59 Miscellaneous (Carbohydrates For Hypoglycemia ) 15 - 30 gm PO UD PRN PRN Reason: Hypoglycemia Protocol Stop: 07/11/23 19:52 Montelukast Sodium (Montelukast Sodium 10 Mg Tablet) 10 mg PO DAILY [facility] Stop: 07/12/23 08:59 Multivitamins (Multivitamin Tab) 1 tab PO QAM [facility] Stop: 07/12/23 08:59 Ondansetron HCl (Ondansetron Inj 2 Mg/Ml 2 Ml Vial) 4 mg IV Q6H PRN PRN Reason: Nausea Stop: 07/11/23 19:52 Polyethylene Glycol (Polyethylene (Miralax) 17 Gm Pack) 17 gm PO DAILY PRN PRN Reason: Constipation Stop: 07/11/23 19:52 Rosuvastatin Calcium (Rosuvastatin Calcium 20 Mg Tab) 20 mg PO HS [facility] Stop: 07/11/23 20:59 Last Admin: 06/11/23 22:47 Dose: 20 mg Sodium Chloride (Sodium Chloride 0.65% Na Soln 45 Ml ([place])) 1 sprays NA QID PRN PRN Reason: Nasal Congestion Stop: 07/12/23 08:57 Tramadol HCl (Tramadol Hcl 50 Mg Tablet) 50 mg PO Q6H PRN PRN Reason: Pain Stop: 07/11/23 19:52 Trazodone HCl (Trazodone Hcl 50 Mg Tab) 50 mg PO [facility] Stop: 07/11/23 20:59 Last Admin: 06/11/23 22:47 Dose: 50 mg Vitamin D (Cholecalciferol 5,000 Units 125 Mcg Tab) 5,000 units PO DAILY [facility] Stop: 07/12/23 08:59
[2023-06-12] MEDS: INSULIN ASPART PER UNIT CHARGE SC SCH ×4 (09:13→21:35)
[2023-06-12] MEDS: LANTUS PER UNIT CHARGE SQ SCH ×2 (09:14→21:36)
[2023-06-12] MEDS: MELOXICAM 7.5 MG TAB PO SCH (09:25)
[2023-06-12] MEDS: CYANOCOBALAMIN (B-12) 500 MCG TABLET PO SCH (09:26)
[2023-06-12] MEDS: carvediloL 3.125 MG TAB PO SCH ×2 (09:26→16:57)
[2023-06-12] MEDS: ASPIRIN 325 MG ECTAB PO SCH (09:27)
[2023-06-12] MEDS: AZELASTINE HCL 0.1% NASAL 200 SPRAYS/27,400 MCG BTL SCH ×2 (09:28→21:54)
[2023-06-12] MEDS: CHOLECALCIFEROL 5,000 UNITS 125 MCG TAB PO SCH (09:28)
[2023-06-12] MEDS: MULTIVITAMIN TAB PO SCH (09:28)
[2023-06-12] MEDS: MONTELUKAST SODIUM 10 MG TABLET PO SCH (09:28)
[2023-06-12] MEDS: CETIRIZINE HCL 10 MG TABLET PO SCH (09:29)
[2023-06-12] MEDS: lisinopril 2.5 MG TAB PO SCH (09:29)
[2023-06-12] MEDS: traMADol HCL 50 MG TABLET PO PRN ×2 (09:46→22:03)
[2023-06-12] MEDS: guaiFENesin 600 MG TABCR PO SCH ×2 (09:46→21:55)
[2023-06-12 09:51] LABS: Magnesium 1.5 mg/dl (1.7-2.4); Phosphorus 3.2 mg/dl (2.5-4.9)
[2023-06-12] MEDS ORDERED: MAGNESIUM SULFATE / D5W 1 GM/100 ML BAG IV ONE (11:13)
[2023-06-12] MEDS: ENOXAPARIN INJ 40 MG/0.4 ML SYR SQ SCH (21:54)
[2023-06-12] MEDS: ROSUVASTATIN CALCIUM 20 MG TAB PO SCH (21:55)
[2023-06-12] MEDS: traZODone HCL 50 MG TAB PO SCH (21:55)
--- NOTE | 2023-06-13 05:49 | Electrocardiogram Report ---
Test Reason : Blood Pressure : / mmHG Vent. Rate : 061 BPM Atrial Rate : 061 BPM P-R Int : 186 ms QRS Dur : 094 ms QT Int : 418 ms P-R-T Axes : 014 015 041 degrees QTc Int : 420 ms Normal sinus rhythm with sinus arrhythmia Normal ECG No previous ECGs available Confirmed by Og Hernandez ([id number]) on 06/13/2023 5:49:07 AM Referred By: Confirmed By:Og Hernandez
[2023-06-13] MEDS: CARBIDOPA/LEVODOPA 25/100MG TAB PO SCH ×2 (06:22→15:20)
[2023-06-13] MEDS: FAMOTIDINE 40 MG TABLET PO SCH (06:22)
[2023-06-13 06:33] LABS: Hematocrit (blood only) 39.4 % (42.0-52.0); Hemoglobin 12.9 g/dl (14.0-18.0); Mean Corpuscular Hemoglobin 29.4 pg (25.0-34.0); Mean Corpuscular Hgb Conc 32.7 g/dL (32.0-36.0); Mean Corpuscular Volume 89.7 fL (80.0-100.0); Mean Platelet Volume 9.6 fL (9.4-12.4); Platelet Count 144 K/uL (130-400); RDW Coefficient of Variation 13.2 % (11.5-14.5); RDW Standard Deviation 43.4 fL (36.4-46.3); Red Blood Count 4.39 M/uL (4.70-6.10); White Blood Count 5.64 K/ul (4.8-10.8)
[2023-06-13 06:53] LABS: BUN Creatinine Ratio 18.4 (10-20); Calcium 9.2 mg/dl (8.6-10.3); Est GFR (African American) 47.2 ml/min; Est GFR (Non-African American) 40.7 ml/min; Magnesium 1.8 mg/dl (1.7-2.4); Phosphorus 4.3 mg/dl (2.5-4.9); Potassium 4.5 mmol/L (3.5-5.1)
[2023-06-13] MEDS: CHOLECALCIFEROL 5,000 UNITS 125 MCG TAB PO SCH (08:20)
[2023-06-13] MEDS: MONTELUKAST SODIUM 10 MG TABLET PO SCH (08:20)
[2023-06-13] MEDS: ASPIRIN 325 MG ECTAB PO SCH (08:20)
[2023-06-13] MEDS: MULTIVITAMIN TAB PO SCH (08:20)
[2023-06-13] MEDS: CYANOCOBALAMIN (B-12) 500 MCG TABLET PO SCH (08:21)
[2023-06-13] MEDS: MELOXICAM 7.5 MG TAB PO SCH (08:21)
[2023-06-13] MEDS: guaiFENesin 600 MG TABCR PO SCH (08:22)
[2023-06-13] MEDS: CETIRIZINE HCL 10 MG TABLET PO SCH (08:22)
[2023-06-13] MEDS: carvediloL 3.125 MG TAB PO SCH (08:22)
[2023-06-13] MEDS: lisinopril 2.5 MG TAB PO SCH (08:22)
[2023-06-13] MEDS: AZELASTINE HCL 0.1% NASAL 200 SPRAYS/27,400 MCG BTL SCH (08:23)
[2023-06-13] MEDS: INSULIN ASPART PER UNIT CHARGE SC SCH ×2 (08:24→12:13)
[2023-06-13] MEDS: LANTUS PER UNIT CHARGE SQ SCH (08:25)
--- NOTE | 2023-06-13 14:44 | Hospitalist Progress Note ---
Date of Service June 13, 2023 Assessment & Plan (1) SARS-CoV-2 positive: (2) Generalized weakness: (3) Frequent falls: (4) Parkinson disease: (5) CAD (coronary artery disease): (6) T2DM (type 2 diabetes mellitus): (7) HLD (hyperlipidemia): Plan This is an 78-year-old male who has significant past medical history of Parkinson's disease, T2DM, CAD, HTN, depression and idiopathic peripheral neuropathy who presents to ED secondary to generalized weakness and falling. SARS-CoV-2 positive Generalized weakness Frequent falls Patient does not meet criteria for COVID therapy Supportive care Gentle IV fluid given PT OT Parkinson's disease Chronic, stable Continue Sinemet CAD History of CABG Follows at [facility] cardiology Continue ASA, carvedilol, lisinopril and statin Denies chest pain or shortness of breath T2DM Chronic, stable hold Metformin Lantus/NovoLog per protocol Hypomagnesemia Mag 1.5, replete and monitor DVT ppx: SQ Lovenox FULL CODE Dispo: med surg, PT/OT PCP: Sandra Griggs Admission and Anticipated Discharge Date Admission Date: June 11, 2023 Subjective Pt seen in follow up of weakness, falls, + covid 19. hx of parkinson's and periph. neuropathy Currently sitting up in chair, in NAD. Pt's is present at the bedside. pot reports feeling much better than yesterday, says he walked in the room w/PT No fever, chills, chest pain, shortness of breath, no cough Pt's concerned about his weakness and poss. return home as she doesn't feel she can physically help him much Physical Exam Physical Exam: Constitutional: WD/WN, M in NAD Head: Normocephalic, Atraumatic Eyes: PERRL, conjunctivae normal, anicteric sclerae ENMT: external ear and nose normal, oropharynx normal Neck: supple Respiratory: normal respiratory effort, lungs clear to auscultation, no wheeze, rales, rhonchi. Normal insp/exp effort, no accessory muscle use Cardiovascular: rrr, no murmur, no edema Vessels: no JVD or carotid bruit Chest: normal inspection of chest Abdomen: normal bowel sounds, soft, nontender Musculoskeletal: moves extremities Skin: no rashes, warm and dry normal turgor Neurologic: PERRL, EOMI, no face palsy, no dysarthria, moves all extremities Psychiatric: A+Ox3, euthymic affect Results & Data Results & Data Vital Signs (Past 12 Hours) Vital Signs Temp Pulse Resp BP Pulse Ox O2 Del Method 06/13/23 08:10 Room Air 06/13/23 07:58 36.6 C 58 L 16 158/79 H 96 Room Air Laboratory Results 06/13/23 06/13/23 06/13/23 Range/Units 11:38 07:56 06:07 WBC 5.64 (4.8-10.8) K/ul RBC 4.39 L (4.70-6.10) M/uL Hgb 12.9 L (14.0-18.0) g/dl Hct 39.4 L (42.0-52.0) % MCV 89.7 (80.0-100.0) fL MCH 29.4 (25.0-34.0) pg MCHC 32.7 (32.0-36.0) g/dL RDW Std Deviation 43.4 (36.4-46.3) fL RDW Coeff of Nafisa 13.2 (11.5-14.5) % Plt Count 144 (130-400) K/uL MPV 9.6 (9.4-12.4) fL Sodium 140 (136-145) mmol/L Potassium 4.5 (3.5-5.1) mmol/L Chloride 107 (98-107) mmol/L Carbon Dioxide 28 (21-32) mmol/L Anion Gap 5 (3-11) BUN 29 H (6-23) mg/dl Creatinine 1.58 H (0.6-1.4) mg/dl Est Cr Clr Drug Dosing 44.0 ml/min Est GFR ( Amer) 47.2 ml/min Est GFR (Non-Af Amer) 40.7 ml/min BUN/Creatinine Ratio 18.4 (10-20) Glucose 101 H (70-99(Fasting)) mg/dl POC Glucose 107 H 97 (70-99) mg/dl Calcium 9.2 (8.6-10.3) mg/dl Phosphorus 4.3 D (2.5-4.9) mg/dl Magnesium 1.8 (1.7-2.4) mg/dl 06/12/23 06/12/23 Range/Units 20:44 16:44 WBC (4.8-10.8) K/ul RBC (4.70-6.10) M/uL Hgb (14.0-18.0) g/dl Hct (42.0-52.0) % MCV (80.0-100.0) fL MCH (25.0-34.0) pg MCHC (32.0-36.0) g/dL RDW Std Deviation (36.4-46.3) fL RDW Coeff of Nafisa (11.5-14.5) % Plt Count (130-400) K/uL MPV (9.4-12.4) fL Sodium (136-145) mmol/L Potassium (3.5-5.1) mmol/L Chloride (98-107) mmol/L Carbon Dioxide (21-32) mmol/L Anion Gap (3-11) BUN (6-23) mg/dl Creatinine (0.6-1.4) mg/dl Est Cr Clr Drug Dosing ml/min Est GFR ( Amer) ml/min Est GFR (Non-Af Amer) ml/min BUN/Creatinine Ratio (10-20) Glucose (70-99(Fasting)) mg/dl POC Glucose 117 H 111 H (70-99) mg/dl Calcium (8.6-10.3) mg/dl Phosphorus (2.5-4.9) mg/dl Magnesium (1.7-2.4) mg/dl Medications Administered Current Inpatient Medications Acetaminophen (Acetaminophen 325 Mg Tab) 650 mg PO Q4H PRN PRN Reason: pain/fever Stop: 07/11/23 19:52 Al Hydrox/Mg Hydrox/Simethicone (Aluminum/Magnesium Susp 30 Ml Udc) 30 ml PO Q6H PRN PRN Reason: Dyspepsia Stop: 07/11/23 19:52 Aspirin (Aspirin 325 Mg Ectab) 325 mg PO DAILY [facility] Stop: 07/12/23 08:59 Last Admin: 06/13/23 08:20 Dose: 325 mg Azelastine HCl (Azelastine Hcl 0.1% Nasal 200 Sprays/27,400 Mcg Btl) 2 sprays NA BID [facility] Stop: 07/11/23 20:59 Last Admin: 06/13/23 08:23 Dose: 2 sprays Carbidopa/Levodopa (Carbidopa/Levodopa 25/100mg Tab) 1 tab PO BID@0700,1500 [facility] Stop: 07/12/23 06:59 Last Admin: 06/13/23 06:22 Dose: 1 tab Carvedilol (Carvedilol 3.125 Mg Tab) 3.125 mg PO BIDM [facility] Stop: 07/11/23 20:59 Last Admin: 06/13/23 08:22 Dose: Not Given Cetirizine HCl (Cetirizine Hcl 10 Mg Tablet) 5 mg PO DAILY [facility]; Protocol Stop: 07/12/23 08:59 Last Admin: 06/13/23 08:22 Dose: 5 mg Cyanocobalamin (Cyanocobalamin (B-12) 500 Mcg Tablet) 1,000 mcg PO DAILY [facility] Stop: 07/12/23 08:59 Last Admin: 06/13/23 08:21 Dose: 1,000 mcg Dextrose (Dextrose 50% 50 Ml Syringe) 25 - 50 ml IV UD PRN; Protocol PRN Reason: Hypoglycemia Protocol Stop: 07/11/23 19:52 Enoxaparin Sodium (Enoxaparin Inj 40 Mg/0.4 Ml Syr) 40 mg SQ HS [facility] Stop: 07/11/23 20:59 Last Admin: 06/12/23 21:54 Dose: 40 mg Famotidine (Famotidine 40 Mg Tablet) 40 mg PO DAILYBB [facility] Stop: 07/12/23 06:29 Last Admin: 06/13/23 06:22 Dose: 40 mg Glucagon (Glucagon For Inj 1 Mg Vial) 1 mg SQ UD PRN; Protocol PRN Reason: Hypoglycemia Protocol Stop: 07/11/23 19:52 Glucose (Glucose 10 Tab/Tube) 4 - 8 tab PO UD PRN; Protocol PRN Reason: Hypoglycemia Treatment Stop: 07/11/23 19:52 Glucose (Glucose 40% Gel 15 Gm Tube) 15 - 30 gm PO UD PRN; Protocol PRN Reason: Hypoglycemia Protocol Stop: 07/11/23 19:52 Guaifenesin (Guaifenesin 600 Mg Tabcr) 600 mg PO Q12 [facility] Stop: 07/12/23 08:59 Last Admin: 06/13/23 08:22 Dose: 600 mg Insulin Aspart (Insulin Aspart Per Unit Charge) 0 units SC ACHS [facility] Stop: 07/11/23 20:59 Last Admin: 06/13/23 12:13 Dose: Not Given Insulin Glargine (Lantus Per Unit Charge) 0 - 8 units SQ BID [facility] Stop: 07/11/23 20:59 Last Admin: 06/13/23 08:25 Dose: Not Given Lisinopril (Lisinopril 2.5 Mg Tab) 2.5 mg PO DAILY [facility] Stop: 07/12/23 08:59 Last Admin: 06/13/23 08:22 Dose: 2.5 mg Magnesium Hydroxide (Magnesium Hydroxide Susp 30 Ml Udc) 30 ml PO Q6H PRN PRN Reason: Constipation Stop: 07/11/23 19:52 Meloxicam (Meloxicam 7.5 Mg Tab) 15 mg PO DAILY [facility] Stop: 07/12/23 08:59 Last Admin: 06/13/23 08:21 Dose: 15 mg Miscellaneous (Carbohydrates For Hypoglycemia ) 15 - 30 gm PO UD PRN PRN Reason: Hypoglycemia Protocol Stop: 07/11/23 19:52 Montelukast Sodium (Montelukast Sodium 10 Mg Tablet) 10 mg PO DAILY [facility] Stop: 07/12/23 08:59 Last Admin: 06/13/23 08:20 Dose: 10 mg Multivitamins (Multivitamin Tab) 1 tab PO QAM [facility] Stop: 07/12/23 08:59 Last Admin: 06/13/23 08:20 Dose: 1 tab Ondansetron HCl (Ondansetron Inj 2 Mg/Ml 2 Ml Vial) 4 mg IV Q6H PRN PRN Reason: Nausea Stop: 07/11/23 19:52 Polyethylene Glycol (Polyethylene (Miralax) 17 Gm Pack) 17 gm PO DAILY PRN PRN Reason: Constipation Stop: 07/11/23 19:52 Rosuvastatin Calcium (Rosuvastatin Calcium 20 Mg Tab) 20 mg PO HS [facility] Stop: 07/11/23 20:59 Last Admin: 06/12/23 21:55 Dose: 20 mg Sodium Chloride (Sodium Chloride 0.65% Na Soln 45 Ml ([place])) 1 sprays NA QID PRN PRN Reason: Nasal Congestion Stop: 07/12/23 08:57 Tramadol HCl (Tramadol Hcl 50 Mg Tablet) 50 mg PO Q6H PRN PRN Reason: Pain Stop: 07/11/23 19:52 Last Admin: 06/12/23 22:03 Dose: 50 mg Trazodone HCl (Trazodone Hcl 50 Mg Tab) 50 mg PO [facility] Stop: 07/11/23 20:59 Last Admin: 06/12/23 21:55 Dose: 50 mg Vitamin D (Cholecalciferol 5,000 Units 125 Mcg Tab) 5,000 units PO DAILY [facility] Stop: 07/12/23 08:59 Last Admin: 06/13/23 08:20 Dose: 5,000 units
--- NOTE | 2023-06-13 16:09 | Discharge Summary ---
Date of Service June 13, 2023 Admission HPI Per Admitting Provider This is an 78-year-old male who has significant past medical history of Parkinson's disease, T2DM, CAD, HTN, depression and idiopathic peripheral neuropathy who presents to ED secondary to generalized weakness and falling. is at bedside who also helps elicit history. Patient developed URI Symptoms approximately 5 days ago with sinus congestion, dry cough and fever for 3 days. He continues to have sinus congestion, fatigue, poor appetite and profound weakness. Over the last 2 days he has fallen 6 times. He did not lose consciousness or hit his head. He has no known injuries. He is very difficult to get off the ground so family had to call for help to assist. Due to frequent falls opted to bring patient to ED. Currently denies any fever, chills, sweats, lightheadedness, dizziness, chest pain, shortness of breath, nausea, vomiting, abdominal pain, dysuria, melena or hematochezia. He does complain of urinary urgency but denies any hematuria. Overall appetite has been poor and has not ate or drink much the last few days. In ED he remained hemodynamically stable although mildly hypertensive. Respiratory bio fire positive for SARS-CoV-2. Notable lab abnormalities include H&H 13.8 and 41.8, BUN/creatinine stable at 22 and 1.4. His troponin, CK and TSH are within normal limits. His urinalysis was negative for infection. He did receive IV fluids in the ED. Admission Exam Per Admitting Provider Constitutional: WD/WN, vitals as above, NAD, sitting up in bed, pleasant, conversing easily Head: Normocephalic, Atraumatic Eyes: PERRL, conjunctivae normal, anicteric sclerae ENMT: external ear and nose normal, oropharynx normal Neck: trachea midline, no thyromegaly normal visual inspection Respiratory: normal respiratory effort, lungs clear to auscultation, no wheeze, rales, rhonchi. Normal insp/exp effort, no accessory muscle use Cardiovascular: bradycardic rate, regular rhythm, no murmur, no edema Vessels: no JVD or carotid bruit Chest: normal inspection of chest Abdomen: normal bowel sounds, soft, nontender, no hepatosplenomegaly Musculoskeletal: no cyanosis or clubbing, AROM x 4 Skin: no rashes, warm and dry normal turgor Neurologic: PERRL, EOMI, accommodation nl, no face palsy, no dysarthria CN's II-XI intact bilaterally and moves all extremities Psychiatric: A+Ox3, euthymic affect Lymphatic: no cervical or axillary lymphadenopathy : deferred Principal Diagnosis weakness + Covid 19 Discharge Exam Constitutional: WD/WN, M in NAD Head: Normocephalic, Atraumatic Eyes: PERRL, conjunctivae normal, anicteric sclerae ENMT: external ear and nose normal, oropharynx normal Neck: supple Respiratory: normal respiratory effort, lungs clear to auscultation, no wheeze, rales, rhonchi. Normal insp/exp effort, no accessory muscle use Cardiovascular: rrr, no murmur, no edema Vessels: no JVD or carotid bruit Chest: normal inspection of chest Abdomen: normal bowel sounds, soft, nontender Musculoskeletal: moves extremities Skin: no rashes, warm and dry normal turgor Neurologic: PERRL, EOMI, no face palsy, no dysarthria, moves all extremities Psychiatric: A+Ox3, euthymic affect Discharge Data Allergies Allergy/AdvReac Type Severity Reaction Status Date / Time Iodinated Contrast Media Allergy Severe Anaphylaxis Verified 06/11/23 15:54 iodine Allergy Severe Anaphylaxis Verified 06/11/23 15:54 shellfish derived Allergy Severe Anaphylaxis Verified 06/11/23 15:54 Consultations 06/11/23 15:31 ED Decision to Admit Stat Hospital Course (1) COVID-19: (2) Weakness: This is an 78-year-old male who has significant past medical history of Parkinson's disease, T2DM, CAD, HTN, depression and idiopathic peripheral neuropathy who presents to ED secondary to generalized weakness and falling. SARS-CoV-2 positive Generalized weakness Frequent falls Patient does not meet criteria for COVID therapy Supportive care Gentle IV fluid given PT OT 06/13 - pt feels much improved and pt's at the bedside confirms that he is doing much better. They are interested in discharge from the hospital. Parkinson's disease Chronic, stable Continue Sinemet CAD History of CABG Follows at [facility] cardiology Continue ASA, carvedilol, lisinopril and statin Denies chest pain or shortness of breath T2DM Chronic, stable hold Metformin Lantus/NovoLog per protocol Hypomagnesemia Mag 1.5, replete and monitor Total Time Total Time Spent Total Time Spent (In Minutes): 40 Discharge Plan Discharge Items Patient Disposition: Home - Self-Care Reason For Visit: COVID-19, GENERALIZED WEAKNESS Discharge Diagnosis: weakness + Covid 19 Condition on Discharge: Fair Activity: Per Instructions section Non-emergency contact: Primary Care Provider Call non-emergency contact if: you have any medication questions and your symptoms worsen Follow-up/Referrals: Sandra Griggs MD [Primary Care Provider] - Diet: Carb Consistent or DM2 Addtl Attending Provider Instructions: Follow up with primary care physician within 1 week. Pending Studies at Discharge: No Stand-Alone Forms: My [facility] [place], Smoking Cessation Medications and DC Order Prescriptions: New guaifenesin [Mucinex] 600 mg Tablet Extended Release 12hr 600 mg PO Q12 7 Days Qty: 14 0RF Continued trazodone 50 mg tablet 50 mg PO HS meloxicam 15 mg tablet 15 mg PO DAILY cyanocobalamin (vitamin B-12) [Vitamin B-12] 1,000 mcg Tablet 1,000 mcg PO DAILY tramadol 50 mg tablet 50 mg PO Q6H PRN (Reason: Pain) aspirin 325 mg Tablet,Delayed Release (Dr/Ec) 325 mg PO DAILY azelastine 137 mcg (0.1 %) aerosol,spray 2 spray INTRANASAL BID carbidopa-levodopa 25-100 mg tablet 1 tab PO BID Rx Instructions: 0700 and 1500 metformin 500 mg tablet extended release 24 hr 1,000 mg PO BID lisinopril 2.5 mg tablet 2.5 mg PO DAILY rosuvastatin 20 mg tablet 20 mg PO HS levocetirizine 5 mg tablet 5 mg PO DAILY multivitamin Tablet 1 tab PO DAILY famotidine 40 mg Tablet 40 mg PO DAILYBB carvedilol 3.125 mg tablet 3.125 mg PO BID nitroglycerin [Nitrostat] 0.4 mg Tablet, Sublingual 0.4 mg sublingual DIRECTED PRN (Reason: Chest Pain) montelukast [Singulair] 10 mg Tablet 10 mg PO DAILY cholecalciferol (vitamin D3) [Vitamin D3] 125 mcg (5,000 unit) Tablet 5,000 unit PO DAILY Discharge Orders: Discharge Order (Routine); Ordered 06/13/23 Ordered By: Vito Devine Admission Data Admit Date/Time: 06/11/23 16:19 Attending Provider: Vito Devine Admit Provider: Peri Fry Primary Care Provider: Sandra Griggs Other Providers: Peri Fry
== END 2023-06-13 16:41 | disposition home or self-care (01) | DRG 179 ==
LOC: ED 12:09 → 3W 16:19 → SUATTDRO 16:19 → 3W 19:38

== ENCOUNTER 2025-04-04 12:18 | Inpatient (IN) ==
--- NOTE | 2025-04-04 12:45 | Emergency Department Note ---
Impression & Plan Complicated UTI (urinary tract infection), Acute right flank pain, S/P ureteral stent placement ED Provider Note NAME: CHRIS HAYDEN AGE: 80 SEX: M : 1945 ARRIVES VIA: Walk-In INFORMANT: Patient, ED PROVIDER(S): Anselmo Johnson DO CHIEF COMPLAINT: Flank pain HPI: The patient is an 80-year-old male who presented to the emergency department for flank pain. The patient has a history of bladder cancer. He also has a stent in his left ureter. The patient's been treated for urine infection in the past. He is currently on ampicillin. He started having cloudy urine and back pain again. He was told to come to the emergency department for further evaluation if this occurred. Patient denies having any fever. He denies having any chest pain or difficulty breathing ROS: See above HPI for pertinent positives & negatives. A total of 10 systems reviewed and were otherwise negative. PAST MEDICAL HISTORY: See Below PAST SURGICAL HISTORY: See Below FAMILY HISTORY: See Below SOCIAL HISTORY: See Below HOME MEDICATIONS: See Below ALLERGIES: See Below VITALS: See Below PHYSICAL EXAMINATION: GENERAL: Patient is awake alert in no acute distress patient is resting comfortably and showing no signs of anxiety EYES: The conjunctivae are clear. The pupils are round and reactive. EARS, NOSE, MOUTH AND THROAT: The nose is without any evidence of any deformity. NECK: The neck is nontender and supple. RESPIRATORY: Normal respiratory effort is noted there is no evidence of wheezing rhonchi or rales CARDIOVASCULAR: Regular rate and rhythm noted there no murmurs rubs or gallops normal S1 normal S2. GASTROINTESTINAL: The abdomen is soft. Abdomen is nontender. BACK: There is no midline tenderness. Right CVA tenderness was noted to percussion. Range of motion appears intact MUSCULOSKELETAL/EXTREMITIES: There is no evidence of gross deformity full range of motion is noted in the hips and shoulders. SKIN: There is no obvious evidence of any rash. There are no petechiae, pallor or cyanosis noted. NEUROLOGIC: Patient is awake alert and oriented x3 MEDICAL DECISION MAKING: The patient is an 80-year-old male who presented to the emergency department for an evaluation of flank pain. The patient has a history of bladder cancer. He also has a history of urine infection which was previously treated with IV ampicillin at home with a PICC line. The patient is not on any antibiotics at this time. The patient had flank pain and a urinalysis that was consistent with urine infection. I discussed the patient's laboratory and radiographic studies with him. He was treated with IV antibiotics in emergency department. I also discussed his condition with his primary urology service at [facility]. At this time the patient is scheduled to have his stent removed towards the end of the month. They do not feel the patient requires removal of the stent at this time and would prefer to leave the stent in situ until it is scheduled to come up. For this reason I discussed his condition with the on- call [facility] hospitalist. They have agreed to evaluate the patient in the emergency department for further management and disposition. Triage Nursing notes reviewed. Prior medical records reviewed Vital Signs: reviewed and remarkable for no significant abnormalities Differential diagnosis: Renal colic, UTI, appendicitis, diverticulitis, mesenteric ischemia, aortic pathology, infections, inflammatory bowel disease, PUD, biliary pathology, as well as other pathologies. ER treatment provided: See below Diagnostics interpreted by me: ECG: none Cardiac Monitoring: An order was placed for continuous cardiac monitoring. The monitor shows a rate of 60 bpm with sinus rhythm. With rhythm. Laboratory studies: As stated above and show below. Imaging studies: See below. Radiographic imaging was reviewed by myself Consultation(s): I discussed this case with Dr. Gauthier who is on for the patient's primary urologist at [facility]. I discussed this case with Sena who is on-call for the [facility]ist group. Past Med/Surg History Problem List (Updated 04/04/25 @ 15:55 by Anselmo Johnson DO) S/P ureteral stent placement (Acute) Acute right flank pain (Acute) Enterococcus faecalis infection Complicated UTI (urinary tract infection) (Acute) Fever (Acute) Back pain (Acute) Pyelonephritis (Acute) COVID-19 (Acute) Falling (Acute) Weakness (Acute) Frequent falls Generalized weakness SARS-CoV-2 positive HLD (hyperlipidemia) T2DM (type 2 diabetes mellitus) Parkinson disease CAD (coronary artery disease) Medical History Depression Aortic aneurysm Idiopathic peripheral neuropathy Surgical History Hx of CABG Hx of hernia repair Hx of cataract extraction Family History Father Parkinson disease Social History Smoking Status: Former smoker Tobacco Type: Cigarettes Hx Alcohol Use: No Hx Substance Use: No Preferred Language: Belarusian Communication Ability: Effective Rn Med Surg Required: No Beliefs That Will Affect Care: None marital status: Current Living Situation: Spouse Feels Safe at Home: Yes Assistive Devices: Cane and Walker Allergies Allergies Allergy/AdvReac Type Severity Reaction Status Date / Time Iodinated Contrast Media Allergy Severe Anaphylaxis Verified 01/24/25 20:52 iodine Allergy Severe Anaphylaxis Verified 01/24/25 20:52 shellfish derived Allergy Severe Anaphylaxis Verified 01/24/25 20:52 Home Meds Home Medications Medication Instructions Recorded Confirmed lisinopril 2.5 mg tablet 0 mg PO QAM 06/11/23 04/04/25 nitroglycerin 0.4 mg sublingual 0.4 mg sublingual DIRECTED PRN 06/11/23 04/04/25 tablet (Nitrostat) Chest Pain rosuvastatin 20 mg tablet 0 mg PO QAM 06/11/23 04/04/25 tramadol 50 mg tablet 50 mg PO Q6H PRN Pain 06/11/23 04/04/25 trazodone 50 mg tablet 50 mg PO HS 06/11/23 04/04/25 acetaminophen 650 mg 1,300 mg PO Q8H PRN Pain 01/24/25 04/04/25 tablet,extended release aspirin 81 mg tablet,delayed 81 mg PO QAM 01/24/25 04/04/25 release carbidopa 25 mg-levodopa 100 mg 0 tab PO TID 01/24/25 04/04/25 tablet carvedilol 3.125 mg tablet 3.125 mg PO QPM 01/24/25 04/04/25 oxybutynin chloride 5 mg tablet 5 mg PO UD 01/24/25 04/04/25 ropinirole 0.25 mg tablet 0 mg PO TID 01/24/25 04/04/25 tamsulosin 0.4 mg capsule 0.4 mg PO QAM 01/24/25 04/04/25 ampicillin 500 mg capsule 500 mg PO BID 04/04/25 04/04/25 Previous Rx's Medication Instructions Recorded docusate sodium 100 mg capsule 100 mg PO BID PRN Constipation #30 01/31/25 caps polyethylene glycol 3350 17 gram 17 g PO DAILY PRN constipation #14 01/31/25 oral powder packet (Miralax) ea Results & Data (ED) Vital Signs Vital Signs - 24 hr 04/04/25 12:29 04/04/25 12:44 04/04/25 12:44 Temperature 36.8 C Temperature Source Temporal Artery Scan Pulse Rate 76 Pulse Rate [Finger] Pulse Rate from SpO2 Sensor Respiratory Rate 18 Blood Pressure 132/82 128/74 128/74 Blood Pressure [Right Arm] Blood Pressure Mean 98 90 90 Blood Pressure Mean [Right Arm] Pulse Oximetry 99 Oxygen Delivery Method Sepsis Recent Fever Within 48 Hours No Sepsis New/Unexplained Change in Mental Status No Sepsis Action Taken by Nursing No Action Required 04/04/25 12:44 04/04/25 12:48 04/04/25 12:53 Temperature Temperature Source Pulse Rate 73 66 Pulse Rate [Finger] Pulse Rate from SpO2 Sensor 72 Respiratory Rate 21 Blood Pressure 128/74 Blood Pressure [Right Arm] Blood Pressure Mean 90 Blood Pressure Mean [Right Arm] Pulse Oximetry 98 Oxygen Delivery Method Sepsis Recent Fever Within 48 Hours Sepsis New/Unexplained Change in Mental Status Sepsis Action Taken by Nursing 04/04/25 12:54 04/04/25 13:06 04/04/25 13:18 Temperature Temperature Source Pulse Rate 63 68 Pulse Rate [Finger] Pulse Rate from SpO2 Sensor 64 Respiratory Rate 23 21 Blood Pressure Blood Pressure [Right Arm] Blood Pressure Mean Blood Pressure Mean [Right Arm] Pulse Oximetry 96 98 86 L Oxygen Delivery Method Room Air Sepsis Recent Fever Within 48 Hours Sepsis New/Unexplained Change in Mental Status Sepsis Action Taken by Nursing 04/04/25 13:21 04/04/25 13:33 04/04/25 15:00 Temperature Temperature Source Pulse Rate 72 66 Pulse Rate [Finger] 60 Pulse Rate from SpO2 Sensor Respiratory Rate 20 21 24 Blood Pressure Blood Pressure [Right Arm] 145/91 H Blood Pressure Mean Blood Pressure Mean [Right Arm] 109 Pulse Oximetry 97 Oxygen Delivery Method Room Air Sepsis Recent Fever Within 48 Hours Sepsis New/Unexplained Change in Mental Status Sepsis Action Taken by Care Home Medications Current Medication List: was personally reviewed by me Laboratory Data Attestation: I reviewed the patient's lab results. 04/04/25 12:53 04/04/25 12:53 Lab Results 04/04/25 04/04/25 Range/Units 12:53 13:36 WBC 10.59 (4.8-10.8) K/ul RBC 5.03 (4.70-6.10) M/uL Hgb 13.5 L (14.0-18.0) g/dl Hct 43.2 (42.0-52.0) % MCV 85.9 (80.0-100.0) fL MCH 26.8 (25.0-34.0) pg MCHC 31.3 L (32.0-36.0) g/dL RDW Std Deviation 49.9 H (36.4-46.3) fL RDW Coeff of Nafisa 16.0 H (11.5-14.5) % Plt Count 196 (130-400) K/uL MPV 8.7 L (9.4-12.4) fL Immature Gran % (Auto) 0.5 % Neut % (Auto) 72.9 % Lymph % (Auto) 17.5 % Crosby % (Auto) 6.9 % Eos % (Auto) 1.8 % Baso % (Auto) 0.4 % Neut # (Auto) 7.73 H (1.40-6.50) K/uL Lymph # (Auto) 1.85 (1.20-3.40) K/uL Crosby # (Auto) 0.73 H (0.11-0.59) K/uL Eos # (Auto) 0.19 (0.00-0.50) K/uL Baso # (Auto) 0.04 (0.00-0.20) K/uL Immature Gran # (Auto) 0.05 (0.01-0.20) K/uL Sodium 140 (136-145) mmol/L Potassium 4.0 (3.5-5.1) mmol/L Chloride 107 (98-107) mmol/L Carbon Dioxide 27 (21-32) mmol/L Anion Gap 6 (3-11) BUN 31 H (6-23) mg/dl Creatinine 2.15 H (0.6-1.4) mg/dl Est Cr Clr Drug Dosing 29.7 ml/min eGFR 29.99 BUN/Creatinine Ratio 14.4 (10-20) Glucose 126 H (70-99(Fasting)) mg/dl Calcium 9.4 (8.6-10.3) mg/dl Total Bilirubin 0.5 (0.2-1.0) mg/dl AST 10 L (13-39) U/L ALT < 3 L (7-52) U/L Alkaline Phosphatase 84 (34-104) U/L C-Reactive Protein 4.46 H (0-0.5) mg/dl Total Protein 7.6 (6.0-8.3) gm/dl Albumin 4.1 (3.4-5.0) gm/dl Globulin 3.5 (2.5-4.0) gm/dl Albumin/Globulin Ratio 1.2 (0.9-2) Lipase 15 (11-82) U/L Procalcitonin 0.07 (0-0.5) ng/ml Urine Color Yellow Urine Appearance Turbid A (Clear) Urine pH 5.5 (4.5-7.5) Ur Specific Walton 1.015 (1.000-1.030) Urine Protein 1+ H (Negative) Urine Glucose (UA) Negative (Negative) Urine Ketones Negative (Negative) Urine Blood 2+ H (Negative) Urine Nitrite Negative (Negative) Urine Bilirubin Negative (Negative) Urine Urobilinogen Negative (Negative) Ur Leukocyte Esterase 3+ H (Negative) Urine WBC (Auto) >50 H (0-5) /hpf Urine RBC (Auto) 3-5 H (0-2) /hpf U Hyaline Cast (Auto) 0-2 (0-2) /lpf U Epithel Cells (Auto) 0-2 (0-2) /hpf Urine Bacteria (Auto) None Seen (None Seen) Urine Comment Administered Medications Discontinued Medications Sodium Chloride (Nss) 500 mls @ 999 mls/hr IV .Q31M STA Stop: 04/04/25 13:06 Last Infusion: 04/04/25 13:25 Dose: Infused Documented By: Admin: 04/04/25 12:54 Dose: 999 mls/hr Documented By: DEMAR Ampicillin Sodium 2,000 mg/ (Sodium Chloride) 100 mls @ 200 mls/hr IV NOW STA Stop: 04/04/25 15:26 Last Admin: 04/04/25 15:14 Dose: 200 mls/hr Documented By: GILBERTO Imaging Data Attestation: I personally reviewed and interpreted this imaging study as follows: My Impression: 1 view chest x-ray was obtained in the emergency department. My interpretation is no free air or definite infiltrate, final report below. Radiologist's Impression: Chest X-Ray 04/04/25 12:36 XR chest 1V portable CLINICAL HISTORY: flank pain COMPARISON STUDY: 01/24/2025 FINDINGS: Stable average. Stable mild cardiomegaly without pulmonary vascular congestion. No consolidation or pleural effusion. No pneumothorax. IMPRESSION: No acute findings. ACT 112: Negative or not required by law. Electronically signed by: Bj Austin M.D. 04/04/2025 1:51 PM Abdomen/Pelvis CT 04/04/25 12:[address] WITHOUT CONTRAST CT DOSE: 1235.16 mGy.cm HISTORY: flank pain TECHNIQUE: Multiaxial CT images of the abdomen and pelvis were performed without contrast. A dose lowering technique was utilized adhering to the principles of ALARA. COMPARISON STUDY: 01/24/2025 FINDINGS: ABDOMEN: Liver, gallbladder, spleen, pancreas, and adrenal glands have an unremarkable noncontrast appearance. There is stable position of the left ureteral stent with the upper pigtail in an anterior mid left renal calyx and the distal pigtail within the urinary bladder. There is stable minimal left hydronephrosis and hydroureter. No hydronephrosis on the right. Stable minimal right hydroureter. Stable renal cysts. No renal or ureteral calculi seen. Stable abdominal aortic aneurysm measuring 3.2 cm greatest AP dimension. Pelvis: Prostate is enlarged. Urinary bladder is moderately distended. There is moderate retained stool. Normal appendix. No bowel inflammation or obstruction. No free fluid, free air, or abscess. No enlarged adenopathy. Osseous structures: There is diffuse lumbar degenerative disc disease. There are mild degenerative changes at the hips. IMPRESSION: Stable exam. No adverse change seen. ACT 112: Negative or not required by law. The above report was generated using voice recognition software. It may contain grammatical, syntax or spelling errors. Electronically signed by: Bj Austin M.D. 04/04/2025 1:11 PM Discharge Plan Visit Data Chief Complaint: Flank Pain Stated Complaint: BLADDER KIDNEY PROBLEMS ED Provider: Anselmo Johnson Discharge Problem: Complicated UTI (urinary tract infection), Acute right flank pain, S/P ureteral stent placement Patient Disposition: Being Evaluated by Hospitalist Condition: Fair Forms Stand Alone Forms: My [facility] [address] Prescriptions Prescriptions: No Action trazodone 50 mg tablet 50 mg PO HS tramadol 50 mg tablet 50 mg PO Q6H PRN (Reason: Pain) lisinopril 2.5 mg tablet 0 mg PO QAM Hold Instructions: Hold taking it until further recommendations from your primary care visit physician on follow-up visit. Patient Comments: 04/04- no fill history unable to verify rosuvastatin 20 mg tablet 0 mg PO QAM Patient Comments: 04/04-last filled 11/03 90 day supply #90 nitroglycerin [Nitrostat] 0.4 mg Tablet, Sublingual 0.4 mg sublingual DIRECTED PRN (Reason: Chest Pain) Patient Comments: 04/04- no fill history unable to verify carvedilol 3.125 mg tablet 3.125 mg PO QPM Patient Comments: 04/04- last filled 11/23 90 day supply #180 aspirin 81 mg Tablet,Delayed Release (Dr/Ec) 81 mg PO QAM Patient Comments: 04/04- no fill history unable to verify acetaminophen 650 mg Tablet Extended Release 1,300 mg PO Q8H PRN (Reason: Pain) Patient Comments: 04/04- no fill history unable to verify tamsulosin 0.4 mg capsule 0.4 mg PO QAM oxybutynin chloride 5 mg tablet 5 mg PO UD Hold Instructions: Hold until further recommendations from your primary care physician/urologist Rx Instructions: for use before and after bladder treatment ropinirole 0.25 mg tablet 0 mg PO TID Patient Comments: 04/04- last filled 11/03 90 day supply #270 Rx Instructions: take 1 tablet in the MORNING,AT NOON & BEFORE BEDTIME carbidopa-levodopa 25-100 mg tablet 0 tab PO TID Patient Comments: 04/04-last filled 09/28 90 day supply #270 Rx Instructions: MORNING,NOON AND BEFORE BEDTIME polyethylene glycol 3350 [Miralax] 17 gram Powder In Packet 17 g PO DAILY PRN (Reason: constipation) Qty: 14 0RF Patient Comments: 04/04- no fill history unable to verify docusate sodium 100 mg Capsule 100 mg PO BID PRN (Reason: Constipation) Qty: 30 0RF Patient Comments: 04/04- no fill history unable to verify ampicillin 500 mg capsule 500 mg PO BID Referrals Referrals: Jack Lagunas, [Primary Care Provider] -
[2025-04-04] MEDS: SODIUM CHLORIDE 0.9% 500 ML IV STA (12:54)
--- NOTE | 2025-04-04 13:14 | CT Scan Report ---
ABDOMEN AND PELVIS CT WITHOUT CONTRAST CT DOSE: 1235.16 mGy.cm HISTORY: flank pain TECHNIQUE: Multiaxial CT images of the abdomen and pelvis were performed without contrast. A dose lo wering technique was utilized adhering to the principles of ALARA. COMPARISON STUDY: 01/24/2025 FINDINGS: ABDOMEN: Liver, gallbladder, spleen, pancreas, and adrenal glands have an unremarkable noncontrast ap pearance. There is stable position of the left ureteral stent with the upper pigtail in an anterior m id left renal calyx and the distal pigtail within the urinary bladder. There is stable minimal left h ydronephrosis and hydroureter. No hydronephrosis on the right. Stable minimal right hydroureter. Stab le renal cysts. No renal or ureteral calculi seen. Stable abdominal aortic aneurysm measuring 3.2 cm greatest AP dimension. Pelvis: Prostate is enlarged. Urinary bladder is moderately distended. There is moderate retained sto ol. Normal appendix. No bowel inflammation or obstruction. No free fluid, free air, or abscess. No en larged adenopathy. Osseous structures: There is diffuse lumbar degenerative disc disease. There are mild degenerative ch anges at the hips. IMPRESSION: Stable exam. No adverse change seen. ACT 112: Negative or not required by law. The above report was generated using voice recognition software. It may contain grammatical, syntax o r spelling errors. Electronically signed by: Bj Austin M.D. 04/04/2025 1:11 PM
[2025-04-04 13:19] LABS: Hematocrit (blood only) 43.2 % (42.0-52.0); Hemoglobin 13.5 g/dl (14.0-18.0); Immature Granulocytes # (auto) 0.05 K/uL (0.01-0.20); Immature Granulocytes % (auto) 0.5 %; Mean Corpuscular Hemoglobin 26.8 pg (25.0-34.0); Mean Corpuscular Volume 85.9 fL (80.0-100.0); Platelet Count 196 K/uL (130-400); RDW Standard Deviation 49.9 fL (36.4-46.3); Red Blood Count 5.03 M/uL (4.70-6.10); White Blood Count 10.59 K/ul (4.8-10.8)
[2025-04-04 13:33] LABS: Anion Gap 6 (3-11); Blood Urea Nitrogen 31 mg/dl (6-23); Calcium 9.4 mg/dl (8.6-10.3); Carbon Dioxide 27 mmol/L (21-32); Chloride 107 mmol/L (98-107); Creatinine Clr Calc Pharmacy 29.7 ml/min; Glucose 126 mg/dl (70-99(Fasting)); Potassium 4.0 mmol/L (3.5-5.1); Sodium 140 mmol/L (136-145)
[2025-04-04 13:34] LABS: Alanine Aminotransferase < 3 U/L (7-52); Albumin Globulin Ratio 1.2 (0.9-2); Albumin Level 4.1 gm/dl (3.4-5.0); Alkaline Phosphatase 84 U/L (34-104); Bilirubin,Total 0.5 mg/dl (0.2-1.0); Globulin 3.5 gm/dl (2.5-4.0); Lipase 15 U/L (11-82); Total Protein 7.6 gm/dl (6.0-8.3)
--- NOTE | 2025-04-04 13:53 | XRay Report ---
XR chest 1V portable CLINICAL HISTORY: flank pain COMPARISON STUDY: 01/24/2025 FINDINGS: Stable average. Stable mild cardiomegaly without pulmonary vascular congestion. No consolid ation or pleural effusion. No pneumothorax. IMPRESSION: No acute findings. ACT 112: Negative or not required by law. Electronically signed by: Bj Austin M.D. 04/04/2025 1:51 PM
[2025-04-04 14:07] LABS: Appearance Urine Turbid (Clear); Bacteria Urine Automated None Seen (None Seen); Epithelial Cell Urine Auto 0-2 /hpf (0-2); Glucose Urine UA Negative (Negative); WBC Urine Automated >50 /hpf (0-5)
[2025-04-04 14:40] LABS: Cast Urine Automated 0-2 /lpf (0-2)
[2025-04-04] MEDS: AMPICILLIN 2,000 MG in SODIUM CHLOR 0.9% MINI-B 100 ML IV STA (15:14)
--- NOTE | 2025-04-04 15:42 | History & Physical Report ---
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 Complicated UTI UA with 2+ blood, 3+ LE, >50 WBC, no bacteria seen. Additional labs personally reviewed and grossly unremarkable compared to lia ne. Not meeting sepsis criteria on admission. CTAP: stable position of L ureteral stent, stable minimal L hydronephrosis and hydroureter, stable minimal R hydroureter, no renal/ureteral calculi seen. S/p dose of IV ampicillin in ED based on his prior urine culture results. ED provider spoke with on-call urologist, Dr. Gauthier, at [facility]: -Advised to continue IV ampicillin until urine culture result is back. 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 CTAP done 10/14/24 revealed bilateral hydronephrosis (L>R) with parenchymal t hinning and hydroureteronephrosis to the level of the bladder. S/p TURBT, B RGPGs and L ureteral stent placement on 11/22/24. Found to have a new papillary tumor over the L UO which was resected and pathology showed Ta low- grade UC. Postprocedural course c/b BCG intolerance after 2/[address] Frederick Carpenter, urologist at [facility]. Scheduled to see Dr. Carpenter on 04/13/25 for tentative L ureteral stent removal. Continue Ditropan, Flomax. History of Enterococcus faecalis bacteremia Admitted under service 01/25/25-01/31/25 with complicated UTI, Enterococcus faecalis bacteremia. Completed 2-week course of IV ampicillin on 02/10/25 as recommended by ID. History of recurrent UTIs Was again treated for a UTI last month. Outpatient UA and urine culture at that time grew Enterococcus species with susceptibility to penicillin, nitrofurantoin, tetracycline and vancomycin. He completed a 7-day course of p.o. ampicillin. Moderate retained stool seen on CTAP Patient reports no BM in 4 days, not entirely uncommon for him to go a few days in-between. Trial bowel regimen with scheduled MiraLAX BID, Colace BID. PRN MOM, fleet enema (patient requesting to trial this after MiraLAX, Colace if unsuccessful). CAD with history of [place] s/p CABG Continue ASA, statin. HTN Continue carvedilol, lisinopril. Parkinson's disease With history of gait instability and recurrent falls per . Uses cane at baseline. Appreciate PT/OT evals. Continue Sinemet, Requip. CKD stage IIIb Baseline Cr 2.1-2.2 per chart review. Cr currently around baseline, continue to monitor and avoid nephrotoxic agents as able. History of DMII Remains diet-controlled, check updated Hgb A1c in AM. Monitor BSG checks ACHS. Will hold off on SSI coverage for now. CC diet. History of infrarenal AAA Appears stable on CTAP today, 3.2cm greatest AP dimension. Anemia H/H appears stable compared to prior. Denies any kim hematuria or additional s/sx of active bleeding. Continue to monitor. History of lumbar DDD Has been on tramadol for >5yrs, will continue for now only PRN. DVT Prophylaxis: SCDs/TEDs only for now given microscopic hematuria, anemia Code Status: FULL CODE - Per discussion with the patient and his , Thao, at bedside in the ED. PCP: Jack Lagunas, Disposition: Admit to med/surg Patient seen in collaboration with Dr. Farmer. Please see addendum. I spent a total of 65 minutes coordinating, documenting, and providing care for this patient excluding time spent in the performance of separately billed services or time spent by another provider/QHP. This included personally reviewing all current laboratories and imaging studies, medical reconciliation, outpatient chart review and discussion with specialists. This chart was completed in part utilizing Speech Voice Recognition Software. Grammatical errors, random word insertions, pronoun errors, and incomplete sentences are an occasional consequence of this system due to software limitations, ambient noise, and hardware issues. Any formal questions or concerns about the content, text, or information contained within the body of this dictation should be directly addressed to the provider for clarification. 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 History obtained from the patient, patient's at bedside, discussion with ED provider and associated chart review. Describes right-sided flank pain and increased urinary frequency ongoing since y esterday. Describes right-sided flank pain as more of a "pulling, pressure sensation." No reported fevers, chills or body aches. Appetite grossly unchanged. Has also been experiencing cloudy urine with increased sediment since yesterday. This has occurred previously with prior UTIs. History of bladder cancer. 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 CTAP done 10/14/24 revealed bilateral hydronephrosis (L>R) with parenchymal thinning and hydroureteronephrosis to the level of the bladder, large lower pole left renal cyst calcification, bladder thickening. S/p TURBT, B RGPGs and left ureteral stent placement on 11/22/24. Found to have a new papillary tumor over the left UO which was resected and pathology showed Ta low-grade UC. Postprocedural course c/b BCG intolerance after 2/[address] Frederick Carpenter, urologist at [facility]. Patient admitted under service 01/25/25-01/31/25 with complicated UTI, Enterococcus faecalis bacteremia. Completed 2-week course of IV ampicillin on 02/10/25 as recommended by ID. Was again treated for a UTI last month. Outpatient UA and urine culture at that time grew Enterococcus species with susceptibility to penicillin, nitrofurantoin, tetracycline and vancomycin. He completed a 7-day course of p.o. ampicillin which was prescribed by his primary urologist. Scheduled for left ureteral stent removal on 04/19/25. Former smoker, quit in 2000. Has not drank any alcohol since his early 20s. Denies any recreational drug use. Allergies Allergy/AdvReac Type Severity Reaction Status Date / Time Iodinated Contrast Media Allergy Severe Anaphylaxis Verified 01/24/25 20:52 iodine Allergy Severe Anaphylaxis Verified 01/24/25 20:52 shellfish derived Allergy Severe Anaphylaxis Verified 01/24/25 20:52 Home Medications Medication Instructions Recorded Confirmed Type lisinopril 2.5 mg tablet 2.5 mg PO QAM 06/11/23 04/04/25 History nitroglycerin 0.4 mg sublingual 0.4 mg sublingual DIRECTED PRN 06/11/23 04/04/25 History tablet (Nitrostat) Chest Pain rosuvastatin 20 mg tablet 20 mg PO HS 06/11/23 04/04/25 History tramadol 50 mg tablet 50 mg PO Q6H PRN Pain 06/11/23 04/04/25 History trazodone 50 mg tablet 50 mg PO HS 06/11/23 04/04/25 History aspirin 81 mg tablet,delayed 81 mg PO QAM 01/24/25 04/04/25 History release carbidopa 25 mg-levodopa 100 mg 1 tab PO TID 01/24/25 04/04/25 History tablet carvedilol 3.125 mg tablet 3.125 mg PO QPM 01/24/25 04/04/25 History oxybutynin chloride 5 mg tablet 5 mg PO QAM 01/24/25 04/04/25 History ropinirole 0.25 mg tablet 0.25 mg PO TID 01/24/25 04/04/25 History tamsulosin 0.4 mg capsule 0.4 mg PO QAM 01/24/25 04/04/25 History docusate sodium 100 mg capsule 100 mg PO BID PRN Constipation #30 01/31/25 04/04/25 Rx caps polyethylene glycol 3350 17 gram 17 g PO DAILY PRN constipation #14 01/31/25 04/04/25 Rx oral powder packet (Miralax) ea Past Med/Surg History Problem List (Updated 04/04/25 @ 16:51 by Sena Rick PA-C) History of bladder cancer S/P ureteral stent placement (Acute) Acute right flank pain (Acute) Enterococcus faecalis infection Complicated UTI (urinary tract infection) (Acute) Fever (Acute) Back pain (Acute) Pyelonephritis (Acute) COVID-19 (Acute) Falling (Acute) Weakness (Acute) Frequent falls Generalized weakness SARS-CoV-2 positive HLD (hyperlipidemia) T2DM (type 2 diabetes mellitus) Parkinson disease CAD (coronary artery disease) Medical History Depression Aortic aneurysm Idiopathic peripheral neuropathy Surgical History Hx of CABG Hx of hernia repair Hx of cataract extraction Family History Father Parkinson disease Social History Smoking Status: Former smoker Tobacco Type: Cigarettes Hx Alcohol Use: No Hx Substance Use: No Preferred Language: Kiswahili Communication Ability: Effective Derrickman Helper Required: No Beliefs That Will Affect Care: None marital status: Current Living Situation: Spouse Feels Safe at Home: Yes Assistive Devices: Cane and Walker Review of Systems Review of Systems: At least ten systems reviewed and negative, except as noted in the HPI. Physical Exam Physical Exam: General: Elderly M, NAD, sitting up in bed, very pleasant, A&Ox3, patient's at bedside HEENT: Normocephalic, atraumatic, moist mucous membranes Respiratory: Normal respiratory effort, CTAB Cardiovascular: RRR, normal peripheral pulses, no BLE edema Abdomen/GI: Active bowel sounds, soft, nontender to palpation in all quadrants Extremities/Musculoskeletal: No cyanosis or clubbing, extremities motor strength intact, moves all extremities, no CVAT bilaterally Neurologic: No overt focal deficits, CN's II-XI not formally tested but appear grossly intact bilaterally Results & Data Results & Data Vital Signs (Past 12 Hours) Vital Signs Temp Pulse Pulse Resp BP BP Pulse Ox 04/04/25 15:00 60 24 145/91 H 97 04/04/25 13:33 66 21 04/04/25 13:21 72 20 04/04/25 13:18 68 21 86 L 04/04/25 13:06 63 23 98 04/04/25 12:54 96 04/04/25 12:53 66 04/04/25 12:48 73 21 98 04/04/25 12:44 128/74 04/04/25 12:44 128/74 04/04/25 12:44 128/74 04/04/25 12:29 36.8 C 76 18 132/82 99 O2 Del Method 04/04/25 15:00 Room Air 04/04/25 13:33 04/04/25 13:21 04/04/25 13:18 04/04/25 13:06 04/04/25 12:54 Room Air 04/04/25 12:53 04/04/25 12:48 04/04/25 12:44 04/04/25 12:44 04/04/25 12:44 04/04/25 12:29 Laboratory Results Short CBC 04/04/25 Range/Units 12:53 WBC 10.59 (4.8-10.8) K/ul Hgb 13.5 L (14.0-18.0) g/dl Hct 43.2 (42.0-52.0) % Plt Count 196 (130-400) K/uL BMP 04/04/25 12:53 Sodium 140 Potassium 4.0 Chloride 107 Carbon Dioxide 27 BUN 31 H Creatinine 2.15 H Glucose 126 H Calcium 9.4 Liver Function 04/04/25 Range/Units 12:53 Total Bilirubin 0.5 (0.2-1.0) mg/dl AST 10 L (13-39) U/L ALT < 3 L (7-52) U/L Alkaline Phosphatase 84 (34-104) U/L Albumin 4.1 (3.4-5.0) gm/dl Urine 04/04/25 Range/Units 13:36 Urine Color Yellow Urine Appearance Turbid A (Clear) Urine pH 5.5 (4.5-7.5) Ur Specific [place] 1.015 (1.000-1.030) Urine Protein 1+ H (Negative) Urine Glucose (UA) Negative (Negative) Diagnostic Findings Chest X-Ray 04/04/25 12:36 XR chest 1V portable CLINICAL HISTORY: flank pain COMPARISON STUDY: 01/24/2025 FINDINGS: Stable average. Stable mild cardiomegaly without pulmonary vascular congestion. No consolidation or pleural effusion. No pneumothorax. IMPRESSION: No acute findings. ACT 112: Negative or not required by law. Electronically signed by: Bj Austin M.D. 04/04/2025 1:51 PM Abdomen/Pelvis CT 04/04/25 12:[address] WITHOUT CONTRAST CT DOSE: 1235.16 mGy.cm HISTORY: flank pain TECHNIQUE: Multiaxial CT images of the abdomen and pelvis were performed without contrast. A dose lowering technique was utilized adhering to the principles of ALARA. COMPARISON STUDY: 01/24/2025 FINDINGS: ABDOMEN: Liver, gallbladder, spleen, pancreas, and adrenal glands have an unremarkable noncontrast appearance. There is stable position of the left ureteral stent with the upper pigtail in an anterior mid left renal calyx and the distal pigtail within the urinary bladder. There is stable minimal left hydronephrosis and hydroureter. No hydronephrosis on the right. Stable minimal right hydroureter. Stable renal cysts. No renal or ureteral calculi seen. Stable abdominal aortic aneurysm measuring 3.2 cm greatest AP dimension. Pelvis: Prostate is enlarged. Urinary bladder is moderately distended. There is moderate retained stool. Normal appendix. No bowel inflammation or obstruction. No free fluid, free air, or abscess. No enlarged adenopathy. Osseous structures: There is diffuse lumbar degenerative disc disease. There are mild degenerative changes at the hips. IMPRESSION: Stable exam. No adverse change seen. ACT 112: Negative or not required by law. The above report was generated using voice recognition software. It may contain grammatical, syntax or spelling errors. Electronically signed by: Bj Austin M.D. 04/04/2025 1:11 PM Medications Administered Discontinued Medications Sodium Chloride (Nss) 500 mls @ 999 mls/hr IV .Q31M STA Stop: 04/04/25 13:06 Last Infusion: 04/04/25 13:25 Dose: Infused Documented By: Admin: 04/04/25 12:54 Dose: 999 mls/hr Documented By: ML Ampicillin Sodium 2,000 mg/ (Sodium Chloride) 100 mls @ 200 mls/hr IV NOW STA Stop: 04/04/25 15:26 Last Admin: 04/04/25 15:14 Dose: 200 mls/hr Documented By: GILBERTO Supervising Physician Co-Signing Physician Notes Patient seen and examined at bedside. present. Patient has extensive procedures in bladder 2/2 bladder malignancy, presenting with bilateral flank pain. Hx of UTIs complicated by sepsis. On exam, right flank pain noted to palpation, no swelling in extremities. Hemodynamically stable, creatinine at baseline, no leukocytosis, UA correlates with UTI symptoms. Patient presenting with flank pain with hx of extensive instrumentation in bladder 2/2 malignancy now 2/2 complicated UTI with perhaps early pyelonephritis (given back pain). Urology consulted in ED with Gurmeet, recommended continuing unasyn pending culture results. Follow culture results, start LR maintenance fluids. Likely short hospital stay with possible discharge in 1-2 days. I have seen and discussed the case with the collaborating advanced practitioner. I agree with the above H&P. I have reviewed and confirmed the patients medical history, the findings on physical examination, and the patients diagnosis and treatment plan with Prabhjot BEE and agree with the information documented. I spent a total of 30 minutes coordinating, documenting, and providing care for this patient excluding time spent in the performance of separately billed services. All of the aforementioned completed outside of collaborating with the assigned advanced practitioner for a full treatment plan. I have reviewed the advanced practitioner's documentation, and I agree with, and take responsibility for the plan of care
[2025-04-04] MEDS ORDERED: SOD PHOSPHATE/SOD BIPHOSPHATE ENEMA 132 ML BTL PR PRN (17:07)
[2025-04-04] MEDS: DOCUSATE SODIUM 100 MG CAP PO SCH (18:47)
[2025-04-04] MEDS ORDERED: ONDANSETRON INJ 2 MG/ML 2 ML VIAL IV PRN (20:30)
[2025-04-04] MEDS ORDERED: POLYETHYLENE (MIRALAX) 17 GM PACK PO PRN (20:30)
[2025-04-04] MEDS ORDERED: MAGNESIUM HYDROXIDE SUSP 30 ML UDC PO PRN (20:30)
[2025-04-04] MEDS: LACTATED RINGER'S 1,000 ML IV SCH (20:36)
[2025-04-04] MEDS: CARBIDOPA/LEVODOPA 25/100MG TAB PO SCH (21:23)
[2025-04-04] MEDS: POLYETHYLENE (MIRALAX) 17 GM PACK PO SCH (21:23)
[2025-04-04] MEDS: ROSUVASTATIN CALCIUM 20 MG TAB PO SCH (21:24)
[2025-04-05] MEDS: AMPICILLIN 2,000 MG in SODIUM CHLOR 0.9% MINI-B 100 ML IV SCH (04:06)
[2025-04-05 07:59] LABS: Hematocrit (blood only) 36.7 % (42.0-52.0); Hemoglobin 11.7 g/dl (14.0-18.0); Mean Corpuscular Hemoglobin 27.6 pg (25.0-34.0); Mean Corpuscular Volume 86.6 fL (80.0-100.0); Platelet Count 158 K/uL (130-400); RDW Standard Deviation 50.1 fL (36.4-46.3); Red Blood Count 4.24 M/uL (4.70-6.10); White Blood Count 6.80 K/ul (4.8-10.8)
[2025-04-05 08:16] LABS: Hemoglobin A1C 6.3 % (4.5-5.6)
[2025-04-05 08:17] LABS: Anion Gap 3.0 (3-11); Blood Urea Nitrogen 31.0 mg/dl (6-23); Calcium 8.5 mg/dl (8.6-10.3); Carbon Dioxide 28.0 mmol/L (21-32); Chloride 108.0 mmol/L (98-107); Creatinine Clr Calc Pharmacy 31.7 ml/min; Glucose 102.0 mg/dl (70-99(Fasting)); Magnesium 1.9 mg/dl (1.7-2.4); Potassium 4.2 mmol/L (3.5-5.1); Sodium 139.0 mmol/L (136-145)
[2025-04-05] MEDS: ASPIRIN 81 MG ECTAB PO SCH (09:38)
[2025-04-05] MEDS: TAMSULOSIN HCL 0.4 MG CAP PO SCH (09:38)
--- NOTE | 2025-04-05 13:21 | Hospitalist Progress Note ---
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 Complicated UTI UA with 2+ blood, 3+ LE, >50 WBC, no bacteria seen. Additional labs personally reviewed and grossly unremarkable compared to baseline. Not meeting sepsis criteria on admission. CTAP: stable position of L ureteral stent, stable minimal L hydronephrosis and hydroureter, stable minimal R hydroureter, no renal/ureteral calculi seen. S/p dose of IV ampicillin in ED based on his prior urine culture results. ED provider spoke with on-call urologist, Dr. Gauthier, at [facility]: -Advised to continue IV ampicillin until urine culture result is back. 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 CTAP done 10/14/24 revealed bilateral hydronephrosis (L>R) with parenchymal thinning and hydroureteronephrosis to the level of the bladder. S/p TURBT, B RGPGs and L ureteral stent placement on 11/22/24. Found to have a new papillary tumor over the L UO which was resected and pathology showed Ta low- grade UC. Postprocedural course c/b BCG intolerance after 2/[address] Frederick Carpenter, urologist at [facility]. Scheduled to see Dr. Carpenter on 04/13/25 for tentative L ureteral stent removal. Continue Ditropan, Flomax. History of Enterococcus faecalis bacteremia Admitted under service 01/25/25-01/31/25 with complicated UTI, Enterococcus faecalis bacteremia. Completed 2-week course of IV ampicillin on 02/10/25 as recommended by ID. History of recurrent UTIs Was again treated for a UTI last month. Outpatient UA and urine culture at that time grew Enterococcus species with susceptibility to penicillin, nitrofurantoin, tetracycline and vancomycin. He completed a 7-day course of p.o. ampicillin. Moderate retained stool seen on CTAP Patient reports no BM in 4 days, not entirely uncommon for him to go a few days in-between. Trial bowel regimen with scheduled MiraLAX BID, Colace BID. PRN MOM, fleet enema (patient requesting to trial this after MiraLAX, Colace if unsuccessful). CAD with history of [place] s/p CABG Continue ASA, statin. HTN Continue carvedilol, lisinopril. Parkinson's disease With history of gait instability and recurrent falls per . Uses cane at baseline. Appreciate PT/OT evals. Continue Sinemet, Requip. CKD stage IIIb Baseline Cr 2.1-2.2 per chart review. Cr currently around baseline, continue to monitor and avoid nephrotoxic agents as able. History of DMII Remains diet-controlled, check updated Hgb A1c in AM. Monitor BSG checks ACHS. Will hold off on SSI coverage for now. CC diet. History of infrarenal AAA Appears stable on CTAP today, 3.2cm greatest AP dimension. Anemia H/H appears stable compared to prior. Denies any kim hematuria or additional s/sx of active bleeding. Continue to monitor. History of lumbar DDD Has been on tramadol for >5yrs, will continue for now only PRN. DVT Prophylaxis: SCDs/TEDs only for now given microscopic hematuria, anemia Code Status: FULL CODE - Per discussion with the patient and his , Thao, at bedside in the ED. PCP: Jack Lagunas, Disposition: Admit to med/surg Admission and Anticipated Discharge Date Admission Date: April 04, 2025 Subjective seen resting in bed, comfortable states he is feeling improved today abdominal-back pain is better no problems with urination no fever/chills, nausea no other symptoms Review of Systems Review of Systems: all noted and negative except for above Physical Exam Physical Exam: General- oriented x 3, not in distress, speaks in sentences with no effort or accessory muscle use Eyes- anicteric Neck- no JVD Lungs- clear breath sounds bilaterally, no rales/wheezes Heart- normal rate, regular rhythm; no murmurs Abdomen- normal bowel sounds, nondistended, soft, nontender no CVA tenderness Extremities- no pretibial edema, no calf tenderness Neuro- alert, oriented x 3; no gross focal neurologic deficits Skin- warm & dry Results & Data Results & Data Vital Signs (Past 12 Hours) Vital Signs Temp Pulse Resp BP Pulse Ox O2 Del Method 04/05/25 07:00 36.3 C L 89 18 136/73 95 Room Air all noted and reviewed including below
[2025-04-06 08:02] LABS: Hematocrit (blood only) 38.4 % (42.0-52.0); Hemoglobin 12.6 g/dl (14.0-18.0); Mean Corpuscular Hemoglobin 27.6 pg (25.0-34.0); Mean Corpuscular Volume 84.2 fL (80.0-100.0); Platelet Count 175 K/uL (130-400); RDW Standard Deviation 48.2 fL (36.4-46.3); Red Blood Count 4.56 M/uL (4.70-6.10); White Blood Count 7.53 K/ul (4.8-10.8)
[2025-04-06 08:23] LABS: Anion Gap 6.0 (3-11); Blood Urea Nitrogen 32.0 mg/dl (6-23); Calcium 8.9 mg/dl (8.6-10.3); Carbon Dioxide 24.0 mmol/L (21-32); Chloride 108.0 mmol/L (98-107); Creatinine Clr Calc Pharmacy 33.5 ml/min; Glucose 102.0 mg/dl (70-99(Fasting)); Potassium 4.2 mmol/L (3.5-5.1); Sodium 138.0 mmol/L (136-145)
[2025-04-06] MEDS: ACETAMINOPHEN 325 MG TAB PO PRN (08:41)
--- NOTE | 2025-04-06 16:24 | Hospitalist Progress Note ---
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 Complicated UTI UA with 2+ blood, 3+ LE, >50 WBC, no bacteria seen. Additional labs personally reviewed and grossly unremarkable compared to baseline. Not meeting sepsis criteria on admission. CTAP: stable position of L ureteral stent, stable minimal L hydronephrosis and hydroureter, stable minimal R hydroureter, no renal/ureteral calculi seen. S/p dose of IV ampicillin in ED based on his prior urine culture results. ED provider spoke with on-call urologist, Dr. Gauthier, at [facility]: -Advised to continue IV ampicillin until urine culture result is back. 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 CTAP done 10/14/24 revealed bilateral hydronephrosis (L>R) with parenchymal thinning and hydroureteronephrosis to the level of the bladder. S/p TURBT, B RGPGs and L ureteral stent placement on 11/22/24. Found to have a new papillary tumor over the L UO which was resected and pathology showed Ta low- grade UC. Postprocedural course c/b BCG intolerance after 2/[address] Frederick Carpenter, urologist at [facility]. Scheduled to see Dr. Carpenter on 04/13/25 for tentative L ureteral stent removal. Continue Ditropan, Flomax. History of Enterococcus faecalis bacteremia Admitted under service 01/25/25-01/31/25 with complicated UTI, Enterococcus faecalis bacteremia. Completed 2-week course of IV ampicillin on 02/10/25 as recommended by ID. History of recurrent UTIs Was again treated for a UTI last month. Outpatient UA and urine culture at that time grew Enterococcus species with susceptibility to penicillin, nitrofurantoin, tetracycline and vancomycin. He completed a 7-day course of p.o. ampicillin. -- management of current UTI per above Moderate retained stool seen on CTAP Patient reports no BM in 4 days, not entirely uncommon for him to go a few days in-between. Trial bowel regimen with scheduled MiraLAX BID, Colace BID. PRN MOM, fleet enema (patient requesting to trial this after MiraLAX, Colace if unsuccessful). CAD with history of UT s/p CABG Continue ASA, statin. HTN Continue carvedilol, lisinopril. Parkinson's disease With history of gait instability and recurrent falls per . Uses cane at baseline. Appreciate PT/OT evals. Continue Sinemet, Requip. CKD stage IIIb Baseline Cr 2.1-2.2 per chart review. Cr currently around baseline, continue to monitor and avoid nephrotoxic agents as able. History of DMII Remains diet-controlled, check updated Hgb A1c in AM. Monitor BSG checks ACHS. Will hold off on SSI coverage for now. CC diet. History of infrarenal AAA Appears stable on CTAP today, 3.2cm greatest AP dimension. Anemia H/H appears stable compared to prior. Denies any kim hematuria or additional s/sx of active bleeding. Continue to monitor. History of lumbar DDD Has been on tramadol for >5yrs, will continue for now only PRN. DVT Prophylaxis: SCDs/TEDs only for now given microscopic hematuria, anemia Code Status: FULL CODE - Per discussion with the patient and his , Thao, at bedside in the ED. PCP: Jack Lagunas, Disposition: Admit to med/surg Admission and Anticipated Discharge Date Admission Date: April 04, 2025 Subjective seen resting in bed, comfortable states he feels fine overall continues to feel improved no urinary symptoms, back pain Review of Systems Review of Systems: all noted and negative except for above Physical Exam Physical Exam: General- oriented x 3, not in distress, speaks in sentences with no effort or accessory muscle use Eyes- anicteric Neck- no JVD Lungs- clear breath sounds bilaterally, no rales/wheezes Heart- normal rate, regular rhythm; no murmurs Abdomen- normal bowel sounds, nondistended, soft, nontender Extremities- no pretibial edema, no calf tenderness Neuro- alert, oriented x 3; no gross focal neurologic deficits Skin- warm & dry Results & Data Results & Data Vital Signs (Past 12 Hours) Vital Signs Temp Pulse Resp BP Pulse Ox O2 Del Method 04/06/25 15:12 36.8 C 63 18 144/75 H 99 Room Air 04/06/25 07:21 36.8 C 18 125/68 92 Room Air all noted and reviewed including below
[2025-04-07 07:08] LABS: Hematocrit (blood only) 40.8 % (42.0-52.0); Hemoglobin 13.7 g/dl (14.0-18.0); Mean Corpuscular Hemoglobin 28.2 pg (25.0-34.0); Mean Corpuscular Volume 84.0 fL (80.0-100.0); Platelet Count 189 K/uL (130-400); RDW Standard Deviation 47.4 fL (36.4-46.3); Red Blood Count 4.86 M/uL (4.70-6.10); White Blood Count 7.35 K/ul (4.8-10.8)
[2025-04-07 07:29] LABS: Anion Gap 8.0 (3-11); Blood Urea Nitrogen 33.0 mg/dl (6-23); Calcium 9.4 mg/dl (8.6-10.3); Carbon Dioxide 24.0 mmol/L (21-32); Chloride 106.0 mmol/L (98-107); Creatinine Clr Calc Pharmacy 34.2 ml/min; Glucose 94.0 mg/dl (70-99(Fasting)); Potassium 4.5 mmol/L (3.5-5.1); Sodium 138.0 mmol/L (136-145)
[2025-04-07] MEDS: AMPICILLIN 2,000 MG in SODIUM CHLOR 0.9% MINI-B 100 ML IV SCH (13:33)
--- NOTE | 2025-04-07 17:00 | Infectious Disease Consult ---
Date of Service April 07, 2025 Telehealth Information I performed this visit using a real-time telehealth connection between my location and the patients location ([facility]). After connecting through interactive tele-video, patient was identified by name and date of and/or wristband check.Patient (or authorized healthcare roofing sales representative) was informed that this was a telemedicine visit and it was being conducted confidentially over secure lines. My office door was closed and no one else was present in the room with me.Patient (or authorized healthcare roofing sales representative) provided consent to proceed with the visit, expressed an understanding of privacy and security of the telemedicine visit, and gave permission to have a hospital roofing sales representative in the room in order to assist with the visit and to conduct portions of the visit, as needed. I informed the patient (or authorized healthcare roofing sales representative) that I reviewed their record and presented the opportunity for them to ask any questions regarding the visit today. The patient agreed to participate. Assessment & Plan (1) Enterococcus faecalis infection: Plan: Initial plan was to switch to PO amoxicillin to complete a 14-day course. However, the primary team reached out and mentioned that BCX were not drawn prior to the initiation of IV ABX therapy. Given that we have not technically ruled out a bacteremia, I recommend to consider a TTE. If the TTE is negative, consider using a higher bioavailiability drug (eg linezolid) instead of amoxicillin (the duration for uncomplicated bacteremia would be the same - 14 days). This will need to be discussed with pharmacy to ensure that there are no contraindications. Recommendations were communicated to and/or discussed with the primary/requesting service. ID will not follow the patient after discharge. If any antibiotics/lab were recommended, these will need to be managed by the patients PCP. Infectious Disease is signing off. Contact us if any new issues arise. It is not always possible for Infectious Disease to stay on the case until all workup has finalized. If any testing finalizes after ID signs off, you must notify us (ID is not automatically notified about any inpatient testing results). History of Present Illness History of Present Illness The patient was admitted for flank pain (in the context of previous manipulation and relatively recent Enterococcal bacteremia). Urine culture grew E.faecalis.. The patient reports resolution of his symptoms since being started on ampicillin. Allergies Allergy/AdvReac Type Severity Reaction Status Date / Time Iodinated Contrast Media Allergy Severe Anaphylaxis Verified 01/24/25 20:52 iodine Allergy Severe Anaphylaxis Verified 01/24/25 20:52 shellfish derived Allergy Severe Anaphylaxis Verified 01/24/25 20:52 Home Medications Medication Instructions Recorded Confirmed Type lisinopril 2.5 mg tablet 2.5 mg PO QAM 06/11/23 04/04/25 History nitroglycerin 0.4 mg sublingual 0.4 mg sublingual DIRECTED PRN 06/11/23 04/04/25 History tablet (Nitrostat) Chest Pain rosuvastatin 20 mg tablet 20 mg PO HS 06/11/23 04/04/25 History tramadol 50 mg tablet 50 mg PO Q6H PRN Pain 06/11/23 04/04/25 History trazodone 50 mg tablet 50 mg PO HS 06/11/23 04/04/25 History aspirin 81 mg tablet,delayed 81 mg PO QAM 01/24/25 04/04/25 History release carbidopa 25 mg-levodopa 100 mg 1 tab PO TID 01/24/25 04/04/25 History tablet carvedilol 3.125 mg tablet 3.125 mg PO QPM 01/24/25 04/04/25 History oxybutynin chloride 5 mg tablet 5 mg PO QAM 01/24/25 04/04/25 History ropinirole 0.25 mg tablet 0.25 mg PO TID 01/24/25 04/04/25 History tamsulosin 0.4 mg capsule 0.4 mg PO QAM 01/24/25 04/04/25 History docusate sodium 100 mg capsule 100 mg PO BID PRN Constipation #30 01/31/25 04/04/25 Rx caps polyethylene glycol 3350 17 gram 17 g PO DAILY PRN constipation #14 01/31/25 04/04/25 Rx oral powder packet (Miralax) ea Patient History Medical History Depression Aortic aneurysm Idiopathic peripheral neuropathy Surgical History Hx of CABG Hx of hernia repair Hx of cataract extraction Family History Father Parkinson disease Social History Smoking Status: Former smoker Tobacco Type: Cigarettes Smoking End Date: 2000; Hx Alcohol Use: No Hx Substance Use: No Preferred Language: Chinese Communication Ability: Effective Punch Machine Operator Required: No Beliefs That Will Affect Care: None marital status: Current Living Situation: Spouse Other Information That Helps Us Care for You: No Feels Safe at Home: Yes Safety Concerns: Feels Safe At This Time Assistive Devices: Cane and Walker Review of Systems As reviewed in HPI; a complete ROS was otherwise negative Physical Exam Vitals: see EMR Exam limited due to constraints of telemedicine Gen/Constitutional: appears at stated age, NAD, nontoxic Head: AT, NC Eyes: sclera anicteric, no conjunctival injection ENT: MMM, trachea midline Card: appears to be well-perfused Resp: not tachypneic, nml effort, symmetric chest rise, no accessory muscle use Derm: no visible diaphoresis, no visible rash, no visible jaundice Results & Data Vital Signs (Past 12 Hours) Vital Signs Temp Pulse Resp BP Pulse Ox O2 Del Method 04/07/25 16:07 36.7 C 72 18 138/64 95 Room Air 04/07/25 08:07 36.7 C 52 L 18 97/65 L 95 Room Air Laboratory Results SEE EMR Diagnostic Findings [facility] [address] [place] [address] / Director: Greta Douglas M.D. Clinical Laboratory Report Name: CHRIS HAYDEN V Acct: [id number] Status: ADM IN : 1945 [facility] [place] Date: 04/04/25 Age: 80 Sex: M Dis Date: Loc: Medical/Surgical/Ortho 3 [facility] [place]/Bed: [facility] Spec: [id number] Collected: 04/04/25 Received: 04/04/[address]: Anselmo Johnson DO Source: Urine,Clean Catch OV Order: Ordered: Urine Culture Procedure Result Verified Site Urine Culture Final 04/06/25 Organism 1 Enterococcus faecalis [place] Count 50,000 CFU/ml Sens Sensitivities to Follow E faecalis RX M.I.C. --- --------- Ampicillin S <=2 Ciprofloxacin S <=1 Daptomycin S 2 Gent Synergy S <=500 Levofloxacin S 2 Nitrofurantoin S <=32 Penicillin S 2 Strep Synergy S <=1000 Tetracycline S <=4 Vancomycin S 1 Enterococcus faecalis: Positive ARCENIO 38 Streptomycin Synergy Screen S Gentamicin Synergy Screen S S = SENSITIVE I = INTERMEDIATE R = RESISTANT Name: CHRIS HAYDEN V : 1945 PAGE 1 Printed: 04/07/25 0104 END OF REPORT [address], [place] [address] / Director: Greta Douglas M.D. Clinical Laboratory Report Name: CHRIS HAYDEN V Acct: [id number] Status: ADM IN : 1945 [facility] [place] Date: 04/04/25 Age: 80 Sex: M Dis Date: Loc: Medical/Surgical/Ortho 3 [facility] [place]/Bed: [facility] Spec: [id number] Collected: 04/05/25 Received: 04/05/[address]: Roberto Davis MD Copy To: Anurag Farmer MD Source: Blood OV Order: Ordered: Blood Culture Comments: Blood culture drawn venously from Right Arm. Procedure Result Verified Site Blood Culture Aerobic Preliminary 04/07/25-1201 No growth in Aerobic bottle after 48 hours. Blood Culture Anaerobic Preliminary 04/07/25-1200 No growth in Anaerobic bottle after 48 hours. Name: CHRIS HAYDEN V : 1945 PAGE 1 Printed: 04/07/25 9205 END OF REPORT [address], [place] [address] / Director: Greta Douglas M.D. Clinical Laboratory Report Name: CHRIS HAYDEN V Acct: [id number] Status: ADM IN : 1945 [facility] [place] Date: 04/04/25 Age: 80 Sex: M Dis Date: Loc: Medical/Surgical/Ortho [address] [place] [address]/Bed: W356-2 Spec: [id number] Collected: 04/05/25 Received: 04/05/[address]: Roberto Davis MD Copy To: Anruag Farmer MD Source: Blood OV Order: Ordered: Blood Culture Comments: Blood culture drawn venously from Right Hand. Procedure Result Verified Site Blood Culture Aerobic Preliminary 04/07/25 No growth in Aerobic bottle after 48 hours. Blood Culture Anaerobic Final 04/06/25 Test not performed Name: CHRIS HAYDEN V : 1945 PAGE 1 Printed: 04/07/25 [id number] END OF REPORT
[2025-04-08 08:33] VITALS: BP 126/73; PULSE 67; RESP 18; TEMP 97.7; O2SAT 98
--- NOTE | 2025-04-08 11:31 | XCELERA ---
[id number]
--- NOTE | 2025-04-08 14:47 | Hospitalist Progress Note ---
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 Complicated UTI UA with 2+ blood, 3+ LE, >50 WBC, no bacteria seen. Additional labs personally reviewed and grossly unremarkable compared to baseline. Not meeting sepsis criteria on admission. CTAP: stable position of L ureteral stent, stable minimal L hydronephrosis and hydroureter, stable minimal R hydroureter, no renal/ureteral calculi seen. S/p dose of IV ampicillin in ED based on his prior urine culture results. ED provider spoke with on-call urologist, Dr. Gauthier, at [facility]: -Advised to continue IV ampicillin until urine culture result is back. 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 CTAP done 10/14/24 revealed bilateral hydronephrosis (L>R) with parenchymal thinning and hydroureteronephrosis to the level of the bladder. S/p TURBT, B RGPGs and L ureteral stent placement on 11/22/24. Found to have a new papillary tumor over the L UO which was resected and pathology showed Ta low- grade UC. Postprocedural course c/b BCG intolerance after 2/[address] Frederick Carpenter, urologist at [facility]. Scheduled to see Dr. Carpenter on 04/13/25 for tentative L ureteral stent removal. Continue Ditropan, Flomax. History of Enterococcus faecalis bacteremia Admitted under service 01/25/25-01/31/25 with complicated UTI, Enterococcus faecalis bacteremia. Completed 2-week course of IV ampicillin on 02/10/25 as recommended by ID. History of recurrent UTIs Was again treated for a UTI last month. Outpatient UA and urine culture at that time grew Enterococcus species with susceptibility to penicillin, nitrofurantoin, tetracycline and vancomycin. He completed a 7-day course of p.o. ampicillin. -- management of current UTI per above Moderate retained stool seen on CTAP Patient reports no BM in 4 days, not entirely uncommon for him to go a few days in-between. Trial bowel regimen with scheduled MiraLAX BID, Colace BID. PRN MOM, fleet enema (patient requesting to trial this after MiraLAX, Colace if unsuccessful). CAD with history of [place] s/p CABG Continue ASA, statin. HTN Continue carvedilol, lisinopril. Parkinson's disease With history of gait instability and recurrent falls per . Uses cane at baseline. Appreciate PT/OT evals. Continue Sinemet, Requip. CKD stage IIIb Baseline Cr 2.1-2.2 per chart review. Cr currently around baseline, continue to monitor and avoid nephrotoxic agents as able. History of DMII Remains diet-controlled, check updated Hgb A1c in AM. Monitor BSG checks ACHS. Will hold off on SSI coverage for now. CC diet. History of infrarenal AAA Appears stable on CTAP today, 3.2cm greatest AP dimension. Anemia H/H appears stable compared to prior. Denies any kim hematuria or additional s/sx of active bleeding. Continue to monitor. History of lumbar DDD Has been on tramadol for >5yrs, will continue for now only PRN. DVT Prophylaxis: SCDs/TEDs only for now given microscopic hematuria, anemia Code Status: FULL CODE - Per discussion with the patient and his , Thao, at bedside in the ED. PCP: Jack Lagunas, DO Disposition: Admit to med/surg Admission and Anticipated Discharge Date Admission Date: April 04, 2025 Subjective comfortable states he feels fine overall symptoms are much better Review of Systems Review of Systems: all noted and negative except for above Physical Exam Physical Exam: General- oriented x 3, not in distress, speaks in sentences with no effort or accessory muscle use Eyes- anicteric Neck- no JVD Lungs- clear breath sounds bilaterally Heart- normal rate, regular rhythm; no murmurs Abdomen- normal bowel sounds, nondistended, soft, nontender no CVA tenderness Extremities- no pretibial edema, no calf tenderness Neuro- alert, oriented x 3; no gross focal neurologic deficits Skin- warm & dry Results & Data Results & Data Vital Signs (Past 12 Hours) Vital Signs Temp Pulse Resp BP Pulse Ox O2 Del Method 04/08/25 08:31 36.5 C 67 18 126/73 98 Room Air all noted and reviewed including below
--- NOTE | 2025-04-08 14:47 | Discharge Summary ---
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 Complicated UTI, Enterococcus faecalis UA with 2+ blood, 3+ LE, >50 WBC, no bacteria seen. Additional labs personally reviewed and grossly unremarkable compared to baseline. Not meeting sepsis criteria on admission. CTAP: stable position of L ureteral stent, stable minimal L hydronephrosis and hydroureter, stable minimal R hydroureter, no renal/ureteral calculi seen. S/p dose of IV ampicillin in ED based on his prior urine culture results. ED provider spoke with on-call urologist, Dr. Gauthier, at [facility]: -Advised to continue IV ampicillin until urine culture result is back. 04/05 improving clinically awaiting cultures continue IV Ampicillin 04/06 improving overall, afebrile urine culture: (+) Enterococcus faecalis, awaiting sensitivities 04/07 Urine culture growing Enterococcus faecalis pansensitive Discussed with ID, recommend echocardiogram to rule out endocarditis 04/08 stable overall blood culture negative x 48 hours Echo:No obvious evidence of echocardiographic valvular vegetation, trace to mild valvular regurgitation ID recommending 2-week course of amoxicillin Cannot use linezolid as patient is on Sinemet and trazodone- Discussed with n eurologist Dr. Hale, does not recommending holding Sinemet for 2 weeks in light of severe risks including neuroleptic malignant syndrome, DVTs, etc. 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 CTAP done 10/14/24 revealed bilateral hydronephrosis (L>R) with parenchymal thinning and hydroureteronephrosis to the level of the bladder. S/p TURBT, B RGPGs and L ureteral stent placement on 11/22/24. Found to have a new papillary tumor over the L UO which was resected and pathology showed Ta low- grade UC. Postprocedural course c/b BCG intolerance after 2/ treatments. Follows with Dr. Frederick Carpenter, urologist at [facility]. Scheduled to see Dr. Carpenter on 04/13/25 for tentative L ureteral stent removal. Continue Ditropan, Flomax. History of Enterococcus faecalis bacteremia Admitted under service 01/25/25-01/31/25 with complicated UTI, Enterococcus faecalis bacteremia. Completed 2-week course of IV ampicillin on 02/10/25 as recommended by ID. History of recurrent UTIs Was again treated for a UTI last month. Outpatient UA and urine culture at that time grew Enterococcus species with susceptibility to penicillin, nitrofurantoin, tetracycline and vancomycin. -- management of UTI per above Moderate retained stool seen on CTAP Patient reports no BM in 4 days, not entirely uncommon for him to go a few days in-between. Trial bowel regimen with scheduled MiraLAX BID, Colace BID. PRN MOM, fleet enema (patient requesting to trial this after MiraLAX, Colace if unsuccessful). CAD with history of LA s/p CABG Continue ASA, statin. HTN Continue carvedilol, lisinopril. Parkinson's disease With history of gait instability and recurrent falls per . Uses cane at baseline. Appreciate PT/OT evals. Continue Sinemet, Requip. CKD stage IIIb Baseline Cr 2.1-2.2 per chart review. Cr currently around baseline, continue to monitor and avoid nephrotoxic agents as able. History of DMII Remains diet-controlled, check updated Hgb A1c 6.3 History of infrarenal AAA Appears stable on CTAP today, 3.2cm greatest AP dimension. Anemia H/H appears stable compared to prior. Denies any kim hematuria or additional s/sx of active bleeding. Continue to monitor. History of lumbar DDD Has been on tramadol for >5yrs, will continue for now only PRN. DVT Prophylaxis: SCDs/TEDs only for now given microscopic hematuria, anemia Code Status: FULL CODE - Per discussion with the patient and his , Thao, at bedside in the ED. 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 History obtained from the patient, patient's at bedside, discussion with ED provider and associated chart review. Describes right-sided flank pain and increased urinary frequency ongoing since yesterday. Describes right-sided flank pain as more of a "pulling, pressure sensation." No reported fevers, chills or body aches. Appetite grossly unchanged. Has also been experiencing cloudy urine with increased sediment since yesterday. This has occurred previously with prior UTIs. History of bladder cancer. 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 CTAP done 10/14/24 revealed bilateral hydronephrosis (L>R) with parenchymal thinning and hydroureteronephrosis to the level of the bladder, large lower pole left renal cyst calcification, bladder thickening. S/p TURBT, B RGPGs and left ureteral stent placement on 11/22/24. Found to have a new papillary tumor over the left UO which was resected and pathology showed Ta low-grade UC. Postprocedural course c/b BCG intolerance after 2/[address] Frederick Carpenter, urologist at [facility]. Patient admitted under service 01/25/25-01/31/25 with complicated UTI, Enterococcus faecalis bacteremia. Completed 2-week course of IV ampicillin on 02/10/25 as recommended by ID. Was again treated for a UTI last month. Outpatient UA and urine culture at that time grew Enterococcus species with susceptibility to penicillin, nitrofurantoin, tetracycline and vancomycin. He completed a 7-day course of p.o. ampicillin which was prescribed by his primary urologist. Scheduled for left ureteral stent removal on 04/19/25. Former smoker, quit in 2000. Has not drank any alcohol since his early 20s. Denies any recreational drug use. Admission Exam Per Admitting Provider General: Elderly M, NAD, sitting up in bed, very pleasant, A&Ox3, patient's at bedside HEENT: Normocephalic, atraumatic, moist mucous membranes Respiratory: Normal respiratory effort, CTAB Cardiovascular: RRR, normal peripheral pulses, no BLE edema Abdomen/GI: Active bowel sounds, soft, nontender to palpation in all quadrants Extremities/Musculoskeletal: No cyanosis or clubbing, extremities motor strength intact, moves all extremities, no CVAT bilaterally Neurologic: No overt focal deficits, CN's II-XI not formally tested but appear grossly intact bilaterally Discharge Exam General- oriented x 3, not in distress, speaks in sentences with no effort or accessory muscle use Eyes- anicteric Neck- no JVD Lungs- clear breath sounds bilaterally Heart- normal rate, regular rhythm; no murmurs Abdomen- normal bowel sounds, nondistended, soft, nontender no CVA tenderness Extremities- no pretibial edema, no calf tenderness Neuro- alert, oriented x 3; no gross focal neurologic deficits Skin- warm & dry Updated Medication List Medication Instructions Recorded Confirmed Type lisinopril 2.5 mg tablet 2.5 mg PO QAM 06/11/23 04/04/25 History nitroglycerin 0.4 mg sublingual 0.4 mg sublingual DIRECTED PRN 06/11/23 History tablet (Nitrostat) Chest Pain rosuvastatin 20 mg tablet 20 mg PO HS 06/11/23 04/04/25 History tramadol 50 mg tablet 50 mg PO Q6H PRN Pain 06/11/23 04/04/25 History trazodone 50 mg tablet 50 mg PO HS 06/11/23 04/04/25 History aspirin 81 mg tablet,delayed 81 mg PO QAM 01/24/25 04/04/25 History release carbidopa 25 mg-levodopa 100 mg 1 tab PO TID 01/24/25 04/04/25 History tablet carvedilol 3.125 mg tablet 3.125 mg PO QPM 01/24/25 04/04/25 History oxybutynin chloride 5 mg tablet 5 mg PO QAM 01/24/25 04/04/25 History ropinirole 0.25 mg tablet 0.25 mg PO TID 01/24/25 04/04/25 History tamsulosin 0.4 mg capsule 0.4 mg PO QAM 01/24/25 04/04/25 History docusate sodium 100 mg capsule 100 mg PO BID PRN Constipation #30 01/31/25 04/04/25 Rx caps polyethylene glycol 3350 17 gram 17 g PO DAILY PRN constipation #14 01/31/25 04/04/25 Rx oral powder packet (Miralax) ea amoxicillin 875 mg tablet 875 mg PO BID 14 days #28 tabs 04/08/25 Rx Hospital Stay Data Consultations 04/04/25 15:46 ED Decision to Admit Stat 04/06/25 09:14 Consult Infectious Diseases Routine Diagnostic Imagining Performed 04/04/25 12:37 CT abd pelvis wo con Stat Laboratory Results WBC 7.35 K/ul (4.8-10.8) 04/07/25 06:39 RBC 4.86 M/uL (4.70-6.10) 04/07/25 06:39 Hgb 13.7 g/dl (14.0-18.0) L 04/07/25 06:39 Hct 40.8 % (42.0-52.0) L 04/07/25 06:39 MCV 84.0 fL (80.0-100.0) 04/07/25 06:39 MCH 28.2 pg (25.0-34.0) 04/07/25 06:39 MCHC 33.6 g/dL (32.0-36.0) 04/07/25 06:39 RDW Std Deviation 47.4 fL (36.4-46.3) H 04/07/25 06:39 RDW Coeff of Nafisa 15.5 % (11.5-14.5) H 04/07/25 06:39 Plt Count 189 K/uL (130-400) 04/07/25 06:39 MPV 9.0 fL (9.4-12.4) L 04/07/25 06:39 Immature Gran % (Auto) 0.5 % 04/04/25 12:53 Neut % (Auto) 72.9 % 04/04/25 12:53 Lymph % (Auto) 17.5 % 04/04/25 12:53 [place] % (Auto) 6.9 % 04/04/25 12:53 Eos % (Auto) 1.8 % 04/04/25 12:53 Baso % (Auto) 0.4 % 04/04/25 12:53 Neut # (Auto) 7.73 K/uL (1.40-6.50) H 04/04/25 12:53 Lymph # (Auto) 1.85 K/uL (1.20-3.40) 04/04/25 12:53 [place] # (Auto) 0.73 K/uL (0.11-0.59) H 04/04/25 12:53 Eos # (Auto) 0.19 K/uL (0.00-0.50) 04/04/25 12:53 Baso # (Auto) 0.04 K/uL (0.00-0.20) 04/04/25 12:53 Immature Gran # (Auto) 0.05 K/uL (0.01-0.20) 04/04/25 12:53 Sodium 138 mmol/L (136-145) 04/07/25 06:39 Potassium 4.5 mmol/L (3.5-5.1) 04/07/25 06:39 Chloride 106 mmol/L (98-107) 04/07/25 06:39 Carbon Dioxide 24 mmol/L (21-32) 04/07/25 06:39 Anion Gap 8 (3-11) 04/07/25 06:39 BUN 33 mg/dl (6-23) H 04/07/25 06:39 Creatinine 1.87 mg/dl (0.6-1.4) H 04/07/25 06:39 Est Cr Clr Drug Dosing 34.2 ml/min 04/07/25 06:39 eGFR 35.46 04/07/25 06:39 BUN/Creatinine Ratio 17.6 (10-20) 04/07/25 06:39 Glucose 94 mg/dl (70-99(Fasting)) 04/07/25 06:39 POC Glucose 90 mg/dl (70-99) 04/08/25 11:58 Estimat Average Glucose 134 mg/dl 04/05/25 07:37 Hemoglobin A1c 6.3 % (4.5-5.6) H 04/05/25 07:37 Calcium 9.4 mg/dl (8.6-10.3) 04/07/25 06:39 Phosphorus 2.9 mg/dl (2.5-4.9) 04/05/25 07:37 Magnesium 1.9 mg/dl (1.7-2.4) 04/05/25 07:37 Total Bilirubin 0.5 mg/dl (0.2-1.0) 04/04/25 12:53 AST 10 U/L (13-39) L 04/04/25 12:53 ALT < 3 U/L (7-52) L 04/04/25 12:53 Alkaline Phosphatase 84 U/L (34-104) 04/04/25 12:53 C-Reactive Protein 4.46 mg/dl (0-0.5) H 04/04/25 12:53 Total Protein 7.6 gm/dl (6.0-8.3) 04/04/25 12:53 Albumin 4.1 gm/dl (3.4-5.0) 04/04/25 12:53 Globulin 3.5 gm/dl (2.5-4.0) 04/04/25 12:53 Albumin/Globulin Ratio 1.2 (0.9-2) 04/04/25 12:53 Lipase 15 U/L (11-82) 04/04/25 12:53 Procalcitonin 0.07 ng/ml (0-0.5) 04/04/25 12:53 Urine Color Yellow 04/04/25 13:36 Urine Appearance Turbid (Clear) A 04/04/25 13:36 Urine pH 5.5 (4.5-7.5) 04/04/25 13:36 Ur Specific [place] 1.015 (1.000-1.030) 04/04/25 13:36 Urine Protein 1+ (Negative) H 04/04/25 13:36 Urine Glucose (UA) Negative (Negative) 04/04/25 13:36 Urine Ketones Negative (Negative) 04/04/25 13:36 Urine Blood 2+ (Negative) H 04/04/25 13:36 Urine Nitrite Negative (Negative) 04/04/25 13:36 Urine Bilirubin Negative (Negative) 04/04/25 13:36 Urine Urobilinogen Negative (Negative) 04/04/25 13:36 Ur Leukocyte Esterase 3+ (Negative) H 04/04/25 13:36 Urine WBC (Auto) >50 /hpf (0-5) H 04/04/25 13:36 Urine RBC (Auto) 3-5 /hpf (0-2) H 04/04/25 13:36 U Hyaline Cast (Auto) 0-2 /lpf (0-2) 04/04/25 13:36 U Epithel Cells (Auto) 0-2 /hpf (0-2) 04/04/25 13:36 Urine Bacteria (Auto) None Seen (None Seen) 04/04/25 13:36 Urine Comment 04/04/25 13:36 Impressions Chest X-Ray 04/04/25 12:36 XR chest 1V portable CLINICAL HISTORY: flank pain COMPARISON STUDY: 01/24/2025 FINDINGS: Stable average. Stable mild cardiomegaly without pulmonary vascular congestion. No consolidation or pleural effusion. No pneumothorax. IMPRESSION: No acute findings. ACT 112: Negative or not required by law. Electronically signed by: Bj Austin M.D. 04/04/2025 1:51 PM Abdomen/Pelvis CT 04/04/25 12:[address] WITHOUT CONTRAST CT DOSE: 1235.16 mGy.cm HISTORY: flank pain TECHNIQUE: Multiaxial CT images of the abdomen and pelvis were performed without contrast. A dose lowering technique was utilized adhering to the principles of ALARA. COMPARISON STUDY: 01/24/2025 FINDINGS: ABDOMEN: Liver, gallbladder, spleen, pancreas, and adrenal glands have an unremarkable noncontrast appearance. There is stable position of the left ureteral stent with the upper pigtail in an anterior mid left renal calyx and the distal pigtail within the urinary bladder. There is stable minimal left hydronephrosis and hydroureter. No hydronephrosis on the right. Stable minimal right hydroureter. Stable renal cysts. No renal or ureteral calculi seen. Stable abdominal aortic aneurysm measuring 3.2 cm greatest AP dimension. Pelvis: Prostate is enlarged. Urinary bladder is moderately distended. There is moderate retained stool. Normal appendix. No bowel inflammation or obstruction. No free fluid, free air, or abscess. No enlarged adenopathy. Osseous structures: There is diffuse lumbar degenerative disc disease. There are mild degenerative changes at the hips. IMPRESSION: Stable exam. No adverse change seen. ACT 112: Negative or not required by law. The above report was generated using voice recognition software. It may contain grammatical, syntax or spelling errors. Electronically signed by: Bj Austin M.D. 04/04/2025 1:11 PM Pending Results Patient Have Any Pending Studies at Discharge: No Discharge Instructions Given to Patient (Per Discharging Provider) PLEASE REFER TO YOUR NEW MEDICATION LIST AND FOLLOW INSTRUCTIONS CAREFULLY. YOUR NEW MEDICATIONS INCLUDE: Amoxicillin-antibiotic for treatment of urinary tract infection Probiotics-take once daily for at least 1 month to prevent diarrhea; [employer] recommended Call your Urologist on Thursday to inform them regarding your ongoing treatment f or urinary tract infection and to check if your ureteral stent removal procedure needs to be rescheduled. PLEASE CALL YOUR PRIMARY CARE PHYSICIAN OR RETURN TO THE ER IF WITH WORSENING OF SYMPTOMS, INCLUDING fever/chills, abdominal pain, back pain, problems with urination, diarrhea, nausea /vomiting, etc. FOLLOW UP WITH PRIMARY CARE PHYSICIAN OUTLINED ABOVE. Total Time Total Time Spent Total Time Spent (In Minutes): 60 minutes
== END 2025-04-08 15:05 | disposition home or self-care (01) | DRG 690 ==
LOC: ED 12:18 → 3W 16:02 → SUATTDRO 16:02 → 3W 20:01